=== PATIENT | male | born 1975 | race Caucasian/White ===

== ENCOUNTER 2016-07-23 03:58 | Inpatient (IN) | payer OTHER ==
[2016-07-23] VITALS (27 sets, daily range): BP systolic 134–209; BP diastolic 66–126; PULSE 65–89; RESP 17–80; TEMP 96.7–99.1; O2SAT 72–98; Ht 177.8 cm; Wt 150.1 kg
[~2016-07-23] VITALS: Ht 177.8 cm; Wt 150.1 kg
[~2016-07-23 03:58] MED LIST: AMOX-351 PO; METF500T4 PO
--- OUTSIDE RECORDS SUMMARY | 2016-07-23 04:03 | XMS REPORT | Continuity of Care Document ---
Author Author [facility] Organization [facility] Address Unknown Phone Unavailable Support Name Relationship Address Phone TIAGOHarrietMILLY Next Of Kin [address] [place] [address] Unavailable Insurance Providers Payer Name Policy Number Subscriber Name Relationship Benefit Admin Systems n [id number] Kvng Wan 16 Self Problems No Known Problems or Medical conditions. Family History History Response Recorded Date/Time HX of Orthopedic Surgeries N 11/22/12 1:33am Hx Abdominal Surgery N 11/22/12 1:33am HX Cerebrovascular Accident N 11/22/12 1:33am Hx Seizures N 11/22/12 1:33am Hx Angina N 11/22/12 1:33am Hx Congestive Heart Failure N 11/22/12 1:33am Hx Heart Attack N 11/22/12 1:33am Hx Hypertension Y DX WITH SBC 02/05/12 11/22/12 1:33am Hx Rheumatic Fever N 11/22/12 1:33am Hx Chronic Obstructive Pulmonary Disease (COPD) N 11/22/12 1:33am Hx Diabetes N 11/22/12 1:33am Hx Clotting Problems N 11/22/12 1:33am Hx Cancer N 11/22/12 1:33am Hx MRSA N 11/22/12 1:33am HX of Cardiac Surgeries N 11/22/12 1:33am HX of Reproductive Surgeries N 11/22/12 1:33am HX of Endocrine Surgeries N 11/22/12 1:33am HX of Throat Surgery N 11/22/12 1:33am HX of Neurological Surgeries N 11/22/12 1:33am HX of Genitourinary Surgeries Y LAP MARIANNA 01/29/12 11/22/12 1:33am Infectious abscesses 03/17/12 5:38pm Social History History Response Recorded Date/Time Smoking Status Current some day smoker 11/22/12 1:33am Chewing Tobacco Status N 11/22/12 1:33am Hx Substance Use N 11/22/12 1:33am Hx Alcohol Use Y 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 11/22/12 1:33am Has the pt used tobacco in the last 12 months N 02/05/12 5:03pm Allergies, Adverse Reactions, Alerts Allergen Type Severity Reaction Last Updated No Known Allergies 11/22/12 Medications Medication Dose Units Route Sig Qty Days [Dutoprol] 1 Tab PO Folic Acid 0.8 Mg PO DAILY Warfarin Sodium (Coumadin) 6 Mg PO DAILY Warfarin Sodium (Coumadin) 4 Mg PO DAILY Levofloxacin (Levaquin) 750 Mg PO DAILY 7 Ondansetron Hcl (Zofran) 4 Mg PO PRN Q 6 HR Warfarin Sodium 6 Mg PO TUES AND THURS Warfarin Sodium 4 Mg PO DAILY, NONE TUE,THUR Diphenhydramine Hcl (Benadryl) 50 Mg PO Q6H PRN Nafcillin Sodium (Nafcillin) 8 Gm IV 7ML/HR, 24HR/DAILY Tramadol Hcl 50 Mg PO EVERY 6 HRS NEEDE Oxycodone Hcl (Oxycontin) 5 Mg PO PRN PRN Miscellaneous Information (No Known Medications) Immunizations Name Given Type Hx Influenza Vaccination N H Hx Pneumococcal Vaccination N H Response Recorded Date/Time Status not known Unknown Results Test Date Result Interp. Ref. Range Activated Partial Thromboplast Time March 03, 2012 3:45pm 35.4 SEC N 24- 36 Alanine Aminotransferase (ALT/SGPT) March 20, 2012 4:48am 22 U/L N 21- 72 Albumin March 20, 2012 4:48am 3.1 G/DL L 3.5-5.0 Albumin/Globulin Ratio March 20, 2012 4:48am 0.7 RATIO L 1.1-2.2 Alkaline Phosphatase March 20, 2012 4:48am 112 U/L N 38-126 Amylase Level March 20, 2012 4:48am 54 U/L N 30-110 Anion Gap March 21, 2012 4:15am 9 MEQ/L N 5-15 Arterial Blood Base Excess February 05, 2012 1:15pm 1.9 MMOL/L N -2.0-2.0 Arterial Blood HCO3 February 05, 2012 1:15pm 27 MEQ/L H 22-26 Arterial Blood Oxygen Content February 05, 2012 1:15pm 2 - Arterial Blood Oxygen Saturation February 05, 2012 1:15pm 94.0 % L 95.0- 98.0 Arterial Blood Partial Pressure CO2 February 05, 2012 1:15pm 41 MMHG N 34 -45 Arterial Blood Total CO2 February 05, 2012 1:15pm 27.9 MEQ/L H 23-27 Arterial Blood pH February 05, 2012 1:15pm 7.420 N 7.350-7.450 Aspartate Amino Transf (AST/SGOT) March 20, 2012 4:48am 16 U/L L 17-59 BUN/Creatinine Ratio March 21, 2012 4:15am 6 RATIO N 6-26 Band Neutrophils # March 03, 2012 3:45pm 0.0 T/MM3 - Band Neutrophils % March 03, 2012 3:45pm 1.0 % N 0-6 Basophils # (Auto) March 21, 2012 4:15am 0.0 T/MM3 N 0-0.2 Basophils # (Manual) January 10, 2012 11:17pm 0.1 T/MM3 N 0-0.2 Basophils % (Manual) January 10, 2012 11:17pm 1.0 % N 0-2 Basophils (%) (Auto) March 21, 2012 4:15am 0.4 % N 0-2 Blood Smear Pathologist Review February 12, 2012 1:15pm Sent for review - Blood Urea Nitrogen March 21, 2012 4:15am 9.0 MG/DL N 9-20 C-Reactive Protein March 10, 2012 4:00pm 27.0 MG/L H 0-9 Calcium Level March 21, 2012 4:15am 9.0 MG/DL N 8.4-10.2 Calculated Osmolality March 21, 2012 4:15am 268 MOSM/KG N 261-280 Carbon Dioxide Level March 21, 2012 4:15am 27 MEQ/L N 22-30 Chloride Level March 21, 2012 4:15am 104 MEQ/L N 98-107 Conjugated Bilirubin March 17, 2012 5:50pm 0.00 MG/DL N 0.00-0.30 Creatinine March 21, 2012 4:15am 1.4 MG/DL N 0.8-1.5 Differential Total Cells Counted December 14, 2007 3:55pm 100 % - Eosinophils # (Auto) March 21, 2012 4:15am 0.1 T/MM3 N 0-0.5 Eosinophils # (Manual) March 10, 2012 4:00pm 0.2 T/MM3 N 0-0.5 Eosinophils % (Manual) March 10, 2012 4:00pm 5.0 % H 0-4 Eosinophils (%) (Auto) March 21, 2012 4:15am 1.7 % N 0-4 Erythrocyte Sedimentation Rate March 10, 2012 4:00pm > 100 MM/HR H 0-15 Globulin March 20, 2012 4:48am 4.2 G/DL H 2.4-3.6 Glucose Level March 21, 2012 4:15am 95 MG/DL N 75-110 Group A Streptococcus Screen January 10, 2012 11:20pm Negative - Hematocrit March 21, 2012 4:15am 27.9 % L 41-53 Hemoglobin March 21, 2012 4:15am 8.6 GM/DL L 13.5-17.5 Hepatitis C Antibody March 18, 2012 9:40am Negative - Immunoglobulin G March 18, 2012 9:40am 1676.08 MG/DL H 700-1600 Influenza Type A Antigen March 17, 2012 5:50pm Negative - Influenza Type B Antigen March 17, 2012 5:50pm Negative - Lipase March 20, 2012 4:48am 97 U/L N 23-300 Lymphocytes # (Auto) March 21, 2012 4:15am 1.5 T/MM3 N 1-4.8 Lymphocytes # (Manual) March 10, 2012 4:00pm 1.3 T/MM3 N 1-4.8 Lymphocytes % (Manual) March 10, 2012 4:00pm 34.0 % N 23-45 Lymphocytes (%) (Auto) March 21, 2012 4:15am 21.9 % L 23-45 Mean Corpuscular Hemoglobin March 21, 2012 4:15am 27.7 UUG N 26-34 Mean Corpuscular Hemoglobin Concent March 21, 2012 4:15am 30.8 GM/DL L 31-37 Mean Corpuscular Volume March 21, 2012 4:15am 90.0 UM3 N 80-100 Mean Platelet Volume March 21, 2012 4:15am 9.5 UM3 N 9.4-12.4 Monocytes # (Auto) March 21, 2012 4:15am 0.6 T/MM3 N 0-0.8 Monocytes # (Manual) March 10, 2012 4:00pm 0.2 T/MM3 N 0-0.8 Monocytes % (Manual) March 10, 2012 4:00pm 4.0 % N 0-9.0 Monocytes (%) (Auto) March 21, 2012 4:15am 8.3 % N 0-9.0 Neutrophils # (Auto) March 21, 2012 4:15am 4.7 T/MM3 N 1.8-7.7 Neutrophils # (Manual) March 10, 2012 4:00pm 2.2 T/MM3 N 1.8-7.7 Neutrophils % (Manual) March 10, 2012 4:00pm 57.0 % N 33-66 Neutrophils (%) (Auto) March 21, 2012 4:15am 67.6 % H 33-66 Platelet Count March 21, 2012 4:15am 271 T/MM3 N 130-400 Potassium Level March 21, 2012 4:15am 3.8 MEQ/L N 3.6-5 Prothromb Time International Ratio March 21, 2012 4:15am 1.71 H 0.86- 1.10 RDW Standard Deviation March 21, 2012 4:15am 50.7 FL H 36.9-50.2 Red Blood Count March 21, 2012 4:15am 3.10 M/MM3 L 4.50-5.90 Rickettsia Ab ([facility] Spot Fever) January 11, 2012 11:27am Ref lab rpt scanned - Rouleau March 10, 2012 4:00pm Present - Sodium Level March 21, 2012 4:15am 140 MEQ/L N 134-144 Stool Occult Blood March 19, 2012 11:30am Negative - Streptococcus pneumoniae Antigen March 17, 2012 8:09pm Ref lab rpt scanned - Total Bilirubin March 20, 2012 4:48am 0.90 MG/DL N 0.20-1.30 Total Creatine Kinase March 03, 2012 3:45pm 34 U/L L 55-170 Total Protein March 20, 2012 4:48am 7.3 G/DL N 6.3-8.2 Troponin I March 17, 2012 5:50pm 0.021 ng/ml N 0-0.12 Unconjugated Bilirubin March 17, 2012 5:50pm 0.30 MG/DL N 0.00-1.10 Urine Amorphous Urates February 05, 2012 3:00pm Many - Urine Bilirubin February 05, 2012 3:00pm Negative - Urine Blood February 05, 2012 3:00pm 1+ H - Urine Collection Type February 05, 2012 3:00pm Voided - Urine Color February 05, 2012 3:00pm Yellow - Urine Culture Indicated February 05, 2012 3:00pm Cult reflexed &setup - Urine Fine Granular Casts February 05, 2012 3:00pm 10-20 /LPF - Urine Glucose (UA) February 05, 2012 3:00pm Negative - Urine Ketones February 05, 2012 3:00pm Negative - Urine Leukocyte Esterase February 05, 2012 3:00pm Trace H - Urine Mucus February 05, 2012 3:00pm Present - Urine Myoglobin January 11, 2012 4:40pm Ref lab rpt scanned - Urine Nitrite February 05, 2012 3:00pm Negative - Urine Protein February 05, 2012 3:00pm Trace H - Urine RBC February 05, 2012 3:00pm 1-3 /HPF - Urine Specific [place] February 05, 2012 3:00pm 1.020 - Urine Transitional Epithelial Cells February 05, 2012 3:00pm 3-5 /HPF - Urine Turbidity February 05, 2012 3:00pm Slt cldy - Urine Urobilinogen February 05, 2012 3:00pm 12 EU/DL H - Urine WBC February 05, 2012 3:00pm 3-5 /HPF - Urine pH February 05, 2012 3:00pm 5.0 - Vancomycin Level Trough February 08, 2012 3:15am 9.70 UG/ML L 15-20 White Blood Count March 21, 2012 4:15am 7.0 T/MM3 N 4.5-11.0 West Nile Virus IgG/IgM Antibody January 11, 2012 11:27am Ref lab rpt scanned - Oxygen Delivery Method (LAB) February 05, 2012 1:15pm Nasal cannula,liters - Glucometer January 29, 2012 3:11pm 169 mg/dL H 75-110 HIV (1&2) Ab Bands (Western Blot) March 20, 2012 4:48am Ref lab rpt scanned - HIV (1&2) Antibody Rapid March 18, 2012 9:47am Negative - Lyme Disease Total Antibody January 11, 2012 11:27am Ref lab rpt scanned - Glomerular Filtration Rate Calc March 21, 2012 4:15am 57 - Immature Granulocyte # (Auto) March 21, 2012 4:15am 0.01 T/MM3 N 0.00- 0.03 Immature Granulocyte % (Auto) March 21, 2012 4:15am 0.1 % N 0.0-0.5 Arterial Blood pO2 at Patient Temp February 05, 2012 1:15pm 69 MMHG L 80- 100 Human Granulocytic Ehrlichiosis IgG January 11, 2012 11:27am Ref lab rpt scanned - Mycoplasma pneumoniae IgG & IgM Ab March 18, 2012 9:47am Ref lab rpt scanned - ZT-Wsc-B-Type Natriuretic Peptide February 12, 2012 1:15pm 935 PG/ML H 0- 175 Procedures Procedure Code Date LAPARO CHOLECYSTECTOMY/GRAPH 46213 01/29/12 [id number] ADDITION TO CODE FOR PRIMARY PROCEDURE) S2900 01/29/12 DX ULTRASOUND-HEART 88.72 02/09/12 VENOUS CATHETERIZATION NEC 38.93 02/10/12 PACKED CELL TRANSFUSION 99.04 03/18/12 Blood Culture 03/17/12 Catheter Tip Culture 03/18/12 Gram Stain 03/18/12 Urine Culture 03/17/12 Gram Stain 12/14/07 Encounters Encounter Location Date/Time Departed Emergency Room [facility] 11/22/12 1:26am Discharged Inpatient [facility] 03/18/12 6:10pm
--- OUTSIDE RECORDS SUMMARY | 2016-07-23 04:03 | XMS REPORT | Continuity of Care Document ---
Author Author [facility] Organization [facility] Address Unknown Phone Unavailable Care Team Providers [facility] Name Role Phone JOHNATHAN MILLER DO Primary Care Physician [phone] Insurance Providers Guarantor ElmerKvng Address [address] [phone] CP Email [email or web address] Payer Benefit [employer] Policy Number [id number] Subscriber's Name Kvng Wan Relationship 16 Self Group Number [id number] Chief Complaint and Reason for Visit Chief Complaint Cough,Fever,Flu,URI Reason for Visit Acute sinus infection Problems Past Problems Medical Problem Onset Date Acute sinus infection Unknown Medications Current Home Medications Medication Dose Units Route Directions Days Qty Instructions Start Date Amoxicillin/Potassium Clav (Augmentin 875-125 Tablet) 1 Each Tablet 1 Tab Oral Twice A Day 10 Days 14 Tablet TAKE WITH MEALS 05/20/16 Metformin Hcl Unknown Strength Tablet Unknown Dose Oral Give With Breakfast 2 Best taken with meals 05/20/16 Past Home Medications Medication Directions Ordered Status Diphenhydramine Hcl (Benadryl) 50 Mg Capsule, 50 Mg Oral Every 6 Hours as needed 03/17/12 Discontinued Levofloxacin (Levaquin) 750 Mg Tablet, 750 Mg Oral Daily 03/21/12 Discontinued Miscellaneous Information (No Known Medications) Misc, 01/11/12 Discontinued Nafcillin Sodium (Nafcillin) 1 G Vial, 8 Gm Intraven 7ML/Hr, 24HR/Daily 03/17 Discontinued Ondansetron Hcl (Zofran) 4 Mg Tablet, 4 Mg Oral Prn Q 6 Hr 03/17/12 Discontinued Oxycodone Hcl (Oxycontin) 10 Mg Tab.er.12h, 5 Mg Oral As Needed as needed 06/05 Discontinued Tramadol Hcl 50 Mg Tablet, 50 Mg Oral Every 6 Hrs As Neede 03/17/12 Discontinued Warfarin Sodium (Coumadin) 4 Mg Tablet, 4 Mg Oral Daily 03/22/12 Discontinued Warfarin Sodium (Coumadin) 6 Mg Tablet, 6 Mg Oral Daily 03/22/12 Discontinued Warfarin Sodium 4 Mg Tablet, 4 Mg Oral Daily, None Tue,Thur 03/17/12 Discontinued Warfarin Sodium 6 Mg Tablet, 6 Mg Oral Tues And 03/17/12 Discontinued Social History Social History Problem Response Recorded Date/Time Onset Date Status Chewing Tobacco Status No 11/22/2012 1:33am Not Applicable Not Applicable Hx Substance Use No 11/22/2012 1:33am Not Applicable Not Applicable Hx Alcohol Use 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 Plan of Care Discharge Date 05/20/16 1:30pm Disposition 01 DISCHARGED HOME, SELF-CARE Condition at Discharge Stable Instructions/Education Provided DI for Sinusitis Forms Provided [employer] Work/School Permit Prescriptions See Medication Section Referrals JOHNATHAN MILLER DO Address: [address] [place] [address] [phone] Functional Status No functional status results. Allergies, Adverse Reactions, Alerts No known allergies. Immunizations Query Response on File Recorded Date/Time Hx Influenza Vaccination No 11/22/12 1:33am Hx Pneumococcal Vaccination No 11/22/12 1:33am Hx Influenza Vaccination No 11/22/12 1:33am Vital Signs Acute Vital Signs Vital Response Date/Time Temperature (Fahrenheit) 97.6 deg F (96.8 - 99.1) 05/20/2016 1:07pm Temperature (Calculated Celsius) 36.06247 degrees C (36.0 - 37.3) 05/20/2016 1:07pm Pulse Rate (adult) 98 bpm (60 - 100) 05/20/2016 1:07pm O2 Sat by Pulse Oximetry 98 % (90 - 100) 05/20/2016 1:07pm Blood Pressure 144/90 mm Hg 05/20/2016 1:07pm Height (Feet) 5 feet 05/20/2016 1:07pm Height (Inches) 10.00 inches 05/20/2016 1:07pm Weight (Kilograms) 155.000 kg 05/20/2016 1:07pm Body Mass Index (BMI) 49.0 05/20/2016 1:07pm Results No known relevant diagnostic tests, laboratory data and/or discharge summary. Procedures No known history of procedures. Encounters Encounter Location Arrival/Admit Date Discharge/Depart Date Attending Provider Departed Emergency Room [facility] 05/20/16 12:59pm 05/20/16 1: 30pm [address] L[address] APRN Recent Diagnosis
--- OUTSIDE RECORDS SUMMARY | 2016-07-23 04:13 | XMS REPORT | Continuity of Care Document ---
Author Author [facility] Organization [facility] Address Unknown Phone Unavailable Support Name Relationship Address Phone TIAGOHarrietMILLY Next Of Kin [address] [address] Unavailable Insurance Providers Payer Name Policy Number Subscriber Name Relationship Benefit Admin Systems n [id number] Kvng Wan 16 Self Problems No Known [...] 4:15am 3.10 M/MM3 L 4.50-5.90 Rickettsia Ab ([facility] Spot Fever) January 11, 2012 11:27am Ref [...] 2012 3:00pm 1-3 /HPF - Urine Specific [place] February 05, 2012 3:00pm 1.020 - Urine [...] 2012 9:47am Ref lab rpt scanned - CP-Czj-L-Type Natriuretic Peptide February 12, 2012 1:15pm 935 PG/ML H 0- 175 Procedures Procedure Code Date LAPARO CHOLECYSTECTOMY/GRAPH 43904 01/29/12 [id number] ADDITION TO CODE FOR PRIMARY PROCEDURE) S2900 01/29/12 DX ULTRASOUND-HEART 88.72 02/09/12 VENOUS CATHETERIZATION NEC 38.93 02/10/12 PACKED CELL TRANSFUSION 99.04 03/18/12 Blood Culture 03/17/12 Catheter Tip Culture 03/18/12 Gram Stain 03/18/12 Urine Culture 03/17/12 Gram Stain 12/14/07 Encounters Encounter Location Date/Time Departed Emergency Room [facility] 11/22/12 1:26am Discharged Inpatient [facility] 03/18/12 6:10pm
--- NOTE | 2016-07-23 04:14 | ERPDOC ---
Departure Disposition Decision Date: Jul 23, 2016 Disposition Decision Time: 05:08 Disposition: 02 TO [facility] [place] Impression Impression: Primary Impression: Hypertensive emergency Additional Impressions: Elevated troponin Congestive heart failure Congestive heart failure type: unspecified congestive heart failure type Congestive heart failure chronicity: unspecified congestive heart failure chronicity Qualified Codes: I50.9 - Heart failure, unspecified Pulmonary edema Chronicity: acute Qualified Codes: J81.0 - Acute pulmonary edema Severity: Severe Condition: Improved Seen By: Physician only Referrals: JOHNATHAN MILLER DO (PCP/Family) Problems/Meds/Labs Reviewed?: Yes Medications reviewed and manag: Yes Follow up care ordered?: Yes Mental Status: Alert HPI - Dyspnea General Stated Complaint: SHORTNESS OF BREATH Time Seen by Provider: 04:00 Source: patient, family Exam Limitations: no limitations HPI - Dyspnea Initial Comments Patient presents tonight after getting off work at 2 AM, with complaints of worsening dyspnea. When the patient tries to go to sleep, he awakened suddenly with a severe feeling of not being able to breathe. This is been ongoing for at least one to 2 weeks, and the patient has not contacted his primary physician about this yet. Patient admits that he is supposed to be on blood pressure medication as well as diabetes medication, but due to financial constraints he has not taken the medication in quite some time. 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 Patient is also significantly overweight. Occurred At: home Onset/Timing: Gradual Severity: moderate, severe Activities at Onset: rest, sleep Associated Symptoms: cough, shortness of breath, DENIES: diaphoresis, fever/ chills, headaches, loss of appetite, malaise, nausea/vomiting, rash, seizure, syncope, weakness Aspirin Treatment Today: unknown Hx of Similar Symptoms: Yes Allergies: Coded Allergies: No Known Allergies (Verified , 05/20/16) Past History Past Medical History Metabolic: diabetes, hypertension, other Cardiac: other (endocarditis) Respiratory: pulmonary embolus (2011) GI: gallbladder disease Integumentary: other Infectious: other Surgical History General: gallbladder Family History Family PMH: FOUND: diabetes Vaccines Hx Influenza Vaccination: No Hx Pneumococcal Vaccination: No Social History Smoking Status: Never smoker Does patient use chewing tobac: No Second Hand Exposure: No Substance Use Type: does not use Alcohol Intake: occasionally Record Review Pertinent history updated: Yes Review of Systems Constitutional Constitutional: DENIES: appetite decrease, appetite increase, chills, dizziness , fever, weakness ENMT Ears: DENIES: pain Hearing: DENIES: hearing loss, tinnitus Balance: DENIES: vertigo Mouth/Throat: DENIES: change in swallowing, change in voice, hoarsness, painful swallowing, sore throat Cardiovascular Cardiac: DENIES: chest pain, dyspnea on exertion Rhythm/Rate: DENIES: irregular beat, palpitations, tachycardia Vascular: DENIES: pedal edema Pulmonary Respiratory: cough, dyspnea, DENIES: exposure to TB, hyperventilation, last PPD , pleuritic chest pain, pneumonia hx, recent risky activities, sputum, tachypnea GI Upper Abdomen: DENIES: dysphagia, heartburn/indigestion, nausea, pain, vomiting Lower Abdomen: DENIES: blood in stool, constipation, diarrhea, pain General: DENIES: burning, dysuria, frequency, pain, urgency Musculoskeletal General: DENIES: cramps, joint pain, joint swelling, pain, weakness Integumentary Skin: DENIES: rash, sores Neurological General: DENIES: headache, numbness, tingling, vertigo, weakness Psychiatric Psychiatric: DENIES: anxiety, depression, nervousness Physical Exam General General Nourishment: well nourished, well developed, appears stated age, no acute distress, obese General Body Habitus: well groomed Vitals and Pain First Documented Vital Signs Date Time Temp Pulse Resp B/P Pulse Ox O2 Delivery O2 Flow Rate FiO2 07/23/16 03:58 98.0 110 20 224/147 95 Room Air Weight: Kilograms: Height (feet): 5 Height (inches): 10.00 Triage Pain Scale: RN VS reviewed by Provider: Yes Comments Patient is significantly hypertensive, otherwise vital signs are normal, O2 saturation is well within normal limits Normal Exams: Head: Normocephalic w/o trauma Eyes: Pupils are PERRLA w/ EOMI, No scleral icterus, irritation, or foreign bodies noted ENMT: No facial trauma, nasal exudates, pharyngeal erythema, or exudates are noted Neck: Full range of motion, without adenopathy, JVD, bruits or thyromegaly Chest/Resp: Clear all leon, with good airflow, and symmetry bilaterally CV: Regular rate and rhythm, without murmur or gallop, Pulses 2+ all extremities, capillary refill, <2 seconds all ext., no pedal edema noted Abdomen: Bowel sounds positive, soft, non-tender, non-distended, no hepatosplenomegaly, masses or bruits noted Lymphatic: No lymphadenopathy, or lymphedema noted Musculoskeletal: No tenderness, or deformity noted, good range of motion, all extremities Integumentary: No rashes, hives, or bruising noted, hair and nails, without abnormality Neurologic: Patient is alert, and oriented, cranial nerves, motor/sensory/ cerebellar, exams w/o gross deficits, to observation Psychiatric: Patient exhibits, appropriate attention, emotion and affect Progress Results/Orders Orders Procedure Category Date Status Time Iv Lock (Ed Only) EDM 07/23/16 Transmitted 04:07 EKG EKG 07/23/16 Taken Cbc W/Auto LAB 07/23/16 Complete Diff-Reflex Manual Cmp - Comprehensive LAB 07/23/16 Complete Metabolic Chest, Pa & Lateral RAD 07/23/16 Taken Troponin I W LAB 07/23/16 Complete Hemolysis Index Labetalol (Trandate) PHA 07/23/16 Complete 04:15 Nitroglycerin PHA 07/23/16 Complete Ointment (Nitro-Bid) 04:15 Probnp LAB 07/23/16 Complete UNK D-Dimer LAB 07/23/16 Complete Lisinopril (Prinivil) PHA 07/23/16 Complete 05:00 Furosemide (Lasix) PHA 07/23/16 Complete 05:00 Place In Facility: ED ADM 07/23/16 Transmitted 05:[address] For ED ADM 07/23/16 Transmitted Further Orders 05:09 Notify Adm Physician CR 07/23/16 Transmitted In Am 05:09 Measure Vital Signs [facility] 07/23/16 Transmitted 05:09 Telemetry CR 07/23/16 Transmitted 05:09 Iv Lock (Nursing) CR 07/23/16 Transmitted 05:09 Nitroglycerin PHA 07/23/16 Transmitted (Nitrostat) 05:15 Morphine Sulfate PHA 07/23/16 Transmitted (Morphine) 05:15 Troponin I W LAB 07/23/16 Transmitted Hemolysis Index 10:00 Troponin I W LAB 07/23/16 Transmitted Hemolysis Index 16:00 Lab Results Laboratory Tests Test 07/23/16 04:14 White Blood Count 8.3T/MM3 Red Blood Count 5.03M/MM3 Hemoglobin 15.0GM/DL Hematocrit 45.6% Mean Corpuscular Volume 90.7UM3 Mean Corpuscular Hemoglobin 29.8UUG Mean Corpuscular Hemoglobin Concent 32.9GM/DL RDW Standard Deviation 48.7FL Platelet Count 212T/MM3 Mean Platelet Volume 9.8UM3 Immature Granulocyte % (Auto) 0.2% Neutrophils (%) (Auto) 74.3% Lymphocytes (%) (Auto) 18.5% Monocytes (%) (Auto) 5.2% Eosinophils (%) (Auto) 1.2% Basophils (%) (Auto) 0.6% Absolute Immature Granulocyte (auto 0.02T/MM3 Absolute Neutrophils (auto) 6.1T/MM3 Absolute Lymphocytes (auto) 1.5T/MM3 Absolute Monocytes (auto) 0.4T/MM3 Absolute Eosinophils (auto) 0.1T/MM3 Absolute Basophils (auto) 0.1T/MM3 D-Dimer 222NG/ML Turbidity < 20 Sodium Level 143MEQ/L Potassium Level 4.3MEQ/L Chloride Level 101MEQ/L Carbon Dioxide Level 29MEQ/L Anion Gap 13MEQ/L Blood Urea Nitrogen 26.0MG/DL Creatinine 1.5MG/DL Glomerular Filtration Rate Calc 51 BUN/Creatinine Ratio 17RATIO Glucose Level 135MG/DL Calculated Osmolality 282MOSM/KG Calcium Level 9.8MG/DL Total Bilirubin 1.60MG/DL Icterus Index < 2 Aspartate Amino Transf (AST/SGOT) 53U/L Alanine Aminotransferase (ALT/SGPT) 42U/L Alkaline Phosphatase 123U/L Troponin I 0.148ng/ml PE-Pai-O-Type Natriuretic Peptide 3380PG/ML Total Protein 8.1G/DL Albumin 4.4G/DL Globulin 3.7G/DL Albumin/Globulin Ratio 1.2RATIO Chemistry Specimen Hemolysis < 15 Medications Current ED Medications Labetalol HCl (Trandate) 20 mg O ONCE IV Last administered on 07/23/16 04:24 ; Start 07/23/16 at 04:15; Stop 07/23/16 at 04:17; Status DC Nitroglycerin (Nitro-Bid) 1 inch O ONCE TOP Last administered on 07/23/16 04: 24; Start 07/23/16 at 04:15; Stop 07/23/16 at 04:17; Status DC Lisinopril (Prinivil) 40 mg O ONCE PO Last administered on 07/23/16 04:58; Start 07/23/16 at 05:00; Stop 07/23/16 at 05:02; Status DC Furosemide (Lasix) 40 mg O ONCE IV Last administered on 07/23/16 04:51; Start 07/23/16 at 05:00; Stop 07/23/16 at 05:02; Status DC Progress Progress Patient given 1 inch nitro paste to the chest, and labetalol 20 mg IV - EKG - normal sinus rhythm/sinus tachycardia with incomplete right bundle-branch block, moderate voltage criteria for left ventricular hypertrophy, mild axis deviation to the left. No signs of ischemia, ectopy, or infarction. CBC - normal CMP - mild elevation in glucose at 282, mild bilirubin elevation at 1.6 BNP - typically elevated at 3380 D-dimer normal Chest x-ray - significant cardiomegaly with mild diffuse infiltrative pattern consistent with congestive heart failure/pulmonary edema After initial medications blood pressure significant improved, symptoms have essentially resolved. Patient given milligram Lasix IV here Troponin - elevated 0.[address] Bustamante, we will admit the patient from observation in the CCU for hypertensive emergency with elevated troponin JOHNATHAN STREET MD Jul 23, 2016 04:14
[2016-07-23] MEDS ORDERED: LABETALOL 100mg/20ml INJECTION IV ONE (04:15)
[2016-07-23] MEDS ORDERED: NITROGLYCERIN 2% OINTMENT 1 G PACKET TOP ONE ×2 (04:15→05:15)
[2016-07-23 04:22] LABS: BASOPHILS # (AUTO) 0.1 T/MM3 (0-0.2); BASOPHILS % (AUTO) 0.6 % (0-2); EOSINOPHILS # (AUTO) 0.1 T/MM3 (0-0.5); EOSINOPHILS % (AUTO) 1.2 % (0-4); HCT - HEMATOCRIT 45.6 % (41-53); IMMATURE GRANULOCYTE # (AUTO) 0.02 T/MM3 (0.00-0.03); IMMATURE GRANULOCYTE % (AUTO) 0.2 % (0.0-0.5); LYMPHOCYTES # (AUTO) 1.5 T/MM3 (1-4.8); LYMPHOCYTES % (AUTO) 18.5 % (23-45); MEAN CORPUSCULAR HGB 29.8 UUG (26-34); MEAN CORPUSCULAR HGB CONC(MCHC 32.9 GM/DL (31-37); MEAN CORPUSCULAR VOLUME 90.7 UM3 (80-100); MEAN PLATELET VOLUME 9.8 UM3 (9.4-12.4); MONOCYTES # (AUTO) 0.4 T/MM3 (0-0.8); MONOCYTES % (AUTO) 5.2 % (0-9.0); NEUTROPHILS #(AUTO)-ABSOLUTE 6.1 T/MM3 (1.8-7.7); NEUTROPHILS % (AUTO) 74.3 % (33-66); RED BLOOD COUNT 5.03 M/MM3 (4.50-5.90); WBC - WHITE BLOOD COUNT 8.3 T/MM3 (4.5-11.0)
[2016-07-23 04:29] LABS: ALBUMIN 4.4 G/DL (3.5-5.0); ALBUMIN/GLOBULIN RATIO 1.2 RATIO (1.1-2.2); ALKALINE PHOSPHATASE 123 U/L (38-126); ALT (SGPT) 42 U/L (21-72); ANION GAP 13 MEQ/L (5-15); AST (SGOT) 53 U/L (17-59); BUN/CREATININE RATIO 17 RATIO (6-26); CALCIUM 9.8 MG/DL (8.4-10.2); CHLORIDE 101 MEQ/L (98-107); CO2 - CARBON DIOXIDE 29 MEQ/L (22-30); CREATININE 1.5 MG/DL (0.8-1.5); GLOMERULAR FILTRATION RATE 51; GLUCOSE 135 MG/DL (75-110); POTASSIUM 4.3 MEQ/L (3.6-5); SODIUM 143 MEQ/L (134-144); TOTAL PROTEIN 8.1 G/DL (6.3-8.2)
[2016-07-23 04:39] LABS: PROBNP 3380 PG/ML (0-175)
--- NOTE | 2016-07-23 04:58 | NUR ---
PO MEDS PT GIVEN LISINPRIL CHARTED W/ PT TOLERANCE.
[2016-07-23] MEDS ORDERED: FUROSEMIDE 40 MG/4 ML INJECTION IV ONE (05:00)
[2016-07-23] MEDS ORDERED: LISINOPRIL 40 MG TABLET PO ONE (05:00)
[2016-07-23] MEDS ORDERED: NITROGLYCERIN 0.4 MG SUBLINGUAL TABLET SL PRN (05:15)
[2016-07-23] MEDS ORDERED: MORPHINE SULFATE 2 MG SYRINGE IV PRN (05:15)
--- OUTSIDE RECORDS SUMMARY | 2016-07-23 05:18 | XMS REPORT | Continuity of Care Document ---
Author Author [facility] Organization [facility] Address Unknown Phone Unavailable Support Name Relationship Address Phone TIAGOHarrietMILLY Next Of Kin [address] [address] Unavailable Insurance Providers Payer Name Policy Number Subscriber Name Relationship Benefit [employer] Systems n [id number] Kvng Wan 16 Self Problems No Known [...] 4:15am 3.10 M/MM3 L 4.50-5.90 Rickettsia Ab ([facility] Spot Fever) January 11, 2012 11:27am Ref [...] 2012 3:00pm 1-3 /HPF - Urine Specific [place] February 05, 2012 3:00pm 1.020 - Urine [...] 2012 9:47am Ref lab rpt scanned - JM-Azx-T-Type Natriuretic Peptide February 12, 2012 1:15pm 935 PG/ML H 0- 175 Procedures Procedure Code Date LAPARO CHOLECYSTECTOMY/GRAPH 07500 01/29/12 [id number] ADDITION TO CODE FOR PRIMARY PROCEDURE) S2900 01/29/12 DX ULTRASOUND-HEART 88.72 02/09/12 VENOUS CATHETERIZATION NEC 38.93 02/10/12 PACKED CELL TRANSFUSION 99.04 03/18/12 Blood Culture 03/17/12 Catheter Tip Culture 03/18/12 Gram Stain 03/18/12 Urine Culture 03/17/12 Gram Stain 12/14/07 Encounters Encounter Location Date/Time Departed Emergency Room [facility] 11/22/12 1:26am Discharged Inpatient [facility] 03/18/12 6:10pm
--- NOTE | 2016-07-23 05:20 | NUR ---
REPORT CALLED REPORT TO SHELDON LOMAS
--- NOTE | 2016-07-23 05:30 | NUR ---
TRANSFER TO CCU#5 PT IS TAKEN TO CCU#5 FOR ADMISSION. ACCOMPANIES
--- NOTE | 2016-07-23 05:30 | NUR ---
Admit Patient arrives from ED by wheelchair and transfers to bed without assistance. in room with patient.
--- NOTE | 2016-07-23 08:16 | DI ---
Indication: ITS.REASON: dyspnea Procedure: CHEST, PA LATERAL: Encounter: Initial Comparison: 03/17/2012, 02/12/2012 Technique: PA and lateral radiographs of the chest were obtained. Findings: Lungs and airways: Normal lung volumes. No focal airspace consolidation. Mildly prominent interstitial markings. Pleura: No pleural effusion or pneumothorax. Heart and mediastinum: Cardiomegaly. The great vessels are within normal limits. Osseous structures and soft tissues: No acute osseous abnormality is seen. Impression: Cardiomegaly with mildly prominent interstitial markings which could reflect early congestive change/edema. .
[2016-07-23] MEDS: ENOXAPARIN 40 MG/0.4 ML INJECTION SQ SCH (08:25)
[2016-07-23 08:43] LABS: BLOOD, URINE TRACE-INTACT (NEGATIVE); COLOR,URINE YELLOW (YELLOW); LEUKOCYTE ESTERASE ,URINE NEGATIVE (NEGATIVE); NITRITE,URINE NEGATIVE (NEGATIVE); UROBILINOGEN,URINE 0.2 EU/DL (NORMAL)
[2016-07-23] MEDS ORDERED: LABETALOL 100 MG TABLET PO SCH (09:00)
[2016-07-23] MEDS: ACETAMINOPHEN 325 MG TABLET PO PRN (09:06)
--- NOTE | 2016-07-23 09:30 | NUR ---
STATUS Patient awake and alert. Denies discomfort. Does feel tired. AM cares provided. Patient has lower ext edema w/ discoloration. Dr. Bustamante here to see patient and new orders noted. Echo done. Tries to eat breakfast. Does have a coughing fit and c/o nausea. Will monitor.
[2016-07-23] MEDS: BUMETANIDE 2.5mg INJECTION IV SCH ×3 (10:14→21:44)
[2016-07-23] MEDS: ASPIRIN *EC* 81mg TABLET PO SCH (10:16)
--- NOTE | 2016-07-23 10:30 | NUR ---
STATUS Had coughing fit and nausea spell w/ small amount emesis. Reports CARTER is gone. Diuresing well. Spouse at bedside.
--- NOTE | 2016-07-23 11:45 | HPPDOC ---
TRENT SPENCER JUNAID 07/23/16 1118: HPI - Adult Date DATE: 07/23/16 TIME: 11:15 General Date of Admission Date of Admission: Jul 23, 2016 at 05:09 Chief Complaint: dyspnea History of Present Illness Kvng is a 40 year old who presented this morning after getting off work at 2 AM , with complaints of worsening dyspnea. When he tried to go to sleep, he awakened suddenly with a severe feeling of not being able to breathe. This is been ongoing for at least one to 2 weeks, and he has not contacted his primary physician about this yet. He admits that he is supposed to be on blood pressure medication as well as diabetes medication, but due to financial constraints he has not taken the medication in quite some time. 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 He is also significantly overweight. He is seen today in his room in CCU. He is alert and pleasant. States that he has not been able to afford his medications for about 6 months or more. He denies chest pain, breathing difficulty or dizziness. Past Medical History Past Medical History Metabolic: diabetes, hypertension, other Cardiac: other (endocarditis) Respiratory: pulmonary embolus (2011) GI: gallbladder disease Integumentary: other Infectious: other Surgical History General: gallbladder Current Medications Home Meds Active Scripts Metformin HCl (Glucophage) 500 Mg Tablet, 500 MG PO BIDWM for 30 Days, #60 TAB 11 Refills Prov:TRENT SPENCER JUNAID 07/25/16 Bumetanide (Bumetanide) 1 Mg Tablet, 2 MG PO BID. for 30 Days, #120 TAB 11 Refills Prov:TRENT SPENCER JUNAID 07/25/16 Aspirin *EC* (Aspirin EC) 81 Mg Tablet.dr, 81 MG PO DAILY for 30 Days, #30 TAB 11 Refills Prov:TRENT SPENCER JUNAID 07/25/16 Spironolactone (Aldactone) 25 Mg Tablet, 25 MG PO DAILY for 30 Days, #30 TAB 11 Refills Prov:TRENT SPENCER JUNAID 07/25/16 Sacubitril/Valsartan (Entresto 24 mg-26 mg Tablet) 1 Each Tablet, 1 TAB PO BID for 30 Days, #60 TAB 11 Refills Prov:TRENT SPENCER JUNAID 07/25/16 Nifedipine (Nifedipine ER) 30 Mg Tab.er.24, 30 MG PO DAILY for 30 Days, #30 TAB 11 Refills Prov:TRENT SPENCER MILLER ROD MILL 07/25/16 Carvedilol (Coreg) 25 Mg Tablet, 25 MG PO BIDWM for 30 Days, #60 TAB 11 Refills Prov:TRENT SPENCER MILLER ROD MILL 07/25/16 Allergies: Coded Allergies: No Known Allergies (Verified , 05/20/16) Family History FOUND: diabetes Vaccines unknown unknown year Social History Smoking Status: Never smoker Does patient use chewing tobac: No Second Hand Exposure: No Substance Use Type: does not use Alcohol Intake: occasionally Advance Directives: No DPOA for Healthcare Only Review of Systems Constitutional: DENIES: chills, dizziness, fever, syncope, weakness Eyes Vision: DENIES: double vision ENMT Hearing: DENIES: tinnitus Balance: DENIES: vertigo Sinuses: NOT FOUND: rhinorrhea Mouth/Throat: DENIES: sore throat Cardiovascular dyspnea on exertion, paroxysmal nocturnal dysp, DENIES: chest pain Rhythm/Rate: DENIES: irregular beat, palpitations Vascular: pedal edema, varicosities Pulmonary Respiratory: DENIES: cough, sputum GI Upper Abdomen: DENIES: nausea, vomiting Lower Abdomen: DENIES: blood in stool, diarrhea General: DENIES: dysuria Integumentary Skin: sores Neurological General: DENIES: headache, numbness, syncope, weakness All Other Systems All Other Systems: Reviewed (remainder of 10-point ROS Neg.) Physical Exam General General Nourishment: well nourished, well developed, obese, apparent age Vital Signs Vital Signs Date Time Temp Pulse Resp B/P Pulse Ox O2 Delivery O2 Flow Rate FiO2 07/23/16 08:00 97.9 85 20 204/125 95 Room Air Height (Feet): 5 Height (Inches): 10.00 Telemetry Rhythm: Sinus Rhythm ENMT Brief: FOUND: mucosa moist Neck Brief: NOT FOUND: JVD, carotid bruits Respiratory Brief: FOUND: clear all leon, equal bilaterally, NOT FOUND: rales , wheezes Cardiovascular (brief) Cardiac Brief: FOUND: pedal edema, regular rate, regular rhythm, NOT FOUND: click, gallop, murmur Abdomen (brief) Abdominal Brief: FOUND: BS normo active x4, soft Integumentary (brief) Integumentary Brief: FOUND: dry, lesions (LE venous stasis), pink, warm Neurologic RN Documented GCS Eye Opening: Verbal: Motor: Total: Psychiatric (brief) FOUND: alert, attentive, oriented Laboratory Laboratory Tests Test 07/23/16 04:14 07/23/16 05:56 07/23/16 08:34 07/23/16 09:18 White Blood Count 8.3T/MM3 Red Blood Count 5.03M/MM3 Hemoglobin 15.0GM/DL Hematocrit 45.6% Mean Corpuscular Volume 90.7UM3 Mean Corpuscular Hemoglobin 29.8UUG Mean Corpuscular Hemoglobin Concent 32.9GM/DL RDW Standard Deviation 48.7FL Platelet Count 212T/MM3 Mean Platelet Volume 9.8UM3 Immature Granulocyte % (Auto) 0.2% Neutrophils (%) (Auto) 74.3% Lymphocytes (%) (Auto) 18.5% Monocytes (%) (Auto) 5.2% Eosinophils (%) (Auto) 1.2% Basophils (%) (Auto) 0.6% Absolute Immature Granulocyte (auto 0.02T/MM3 Absolute Neutrophils (auto) 6.1T/MM3 Absolute Lymphocytes (auto) 1.5T/MM3 Absolute Monocytes (auto) 0.4T/MM3 Absolute Eosinophils (auto) 0.1T/MM3 Absolute Basophils (auto) 0.1T/MM3 D-Dimer 222NG/ML Turbidity < 20 Sodium Level 143MEQ/L Potassium Level 4.3MEQ/L Chloride Level 101MEQ/L Carbon Dioxide Level 29MEQ/L Anion Gap 13MEQ/L Blood Urea Nitrogen 26.0MG/DL Creatinine 1.5MG/DL Glomerular Filtration Rate Calc 51 BUN/Creatinine Ratio 17RATIO Glucose Level 135MG/DL Calculated Osmolality 282MOSM/KG Calcium Level 9.8MG/DL Total Bilirubin 1.60MG/DL Icterus Index < 2 Aspartate Amino Transf (AST/SGOT) 53U/L Alanine Aminotransferase (ALT/SGPT) 42U/L Alkaline Phosphatase 123U/L Troponin I 0.148ng/ml 0.128ng/ml LQ-Fxr-X-Type Natriuretic Peptide 3380PG/ML Total Protein 8.1G/DL Albumin 4.4G/DL Globulin 3.7G/DL Albumin/Globulin Ratio 1.2RATIO Chemistry Specimen Hemolysis < 15 < 15 Glucometer 123mg/dL Urine Collection Type Cleancatch-midstream Urine Color Yellow Urine Turbidity Clear Urine pH 6.5 Urine Specific [place] 1.015 Urine Protein Trace Urine Glucose (UA) Negative Urine Ketones Negative Urine Blood Trace-intact Urine Nitrite Negative Urine Bilirubin Negative Urine Urobilinogen 0.2EU/DL Urine Leukocyte Esterase Negative Urinalysis Comment Microscopic not ind. Thyroid Stimulating Hormone (TSH) 3.48MIU/L Laboratory Tests Test 07/23/16 04:14 07/23/16 05:56 07/23/16 08:34 07/23/16 09:18 White Blood Count 8.3T/MM3 Red Blood Count 5.03M/MM3 Hemoglobin 15.0GM/DL Hematocrit 45.6% Mean Corpuscular Volume 90.7UM3 Mean Corpuscular Hemoglobin 29.8UUG Mean Corpuscular Hemoglobin Concent 32.9GM/DL RDW Standard Deviation 48.7FL Platelet Count 212T/MM3 Mean Platelet Volume 9.8UM3 Immature Granulocyte % (Auto) 0.2% Neutrophils (%) (Auto) 74.3% Lymphocytes (%) (Auto) 18.5% Monocytes (%) (Auto) 5.2% Eosinophils (%) (Auto) 1.2% Basophils (%) (Auto) 0.6% Absolute Immature Granulocyte (auto 0.02T/MM3 Absolute Neutrophils (auto) 6.1T/MM3 Absolute Lymphocytes (auto) 1.5T/MM3 Absolute Monocytes (auto) 0.4T/MM3 Absolute Eosinophils (auto) 0.1T/MM3 Absolute Basophils (auto) 0.1T/MM3 D-Dimer 222NG/ML Turbidity < 20 Sodium Level 143MEQ/L Potassium Level 4.3MEQ/L Chloride Level 101MEQ/L Carbon Dioxide Level 29MEQ/L Anion Gap 13MEQ/L Blood Urea Nitrogen 26.0MG/DL Creatinine 1.5MG/DL Glomerular Filtration Rate Calc 51 BUN/Creatinine Ratio 17RATIO Glucose Level 135MG/DL Calculated Osmolality 282MOSM/KG Calcium Level 9.8MG/DL Total Bilirubin 1.60MG/DL Icterus Index < 2 Aspartate Amino Transf (AST/SGOT) 53U/L Alanine Aminotransferase (ALT/SGPT) 42U/L Alkaline Phosphatase 123U/L Troponin I 0.148ng/ml 0.128ng/ml QI-Aba-C-Type Natriuretic Peptide 3380PG/ML Total Protein 8.1G/DL Albumin 4.4G/DL Globulin 3.7G/DL Albumin/Globulin Ratio 1.2RATIO Chemistry Specimen Hemolysis < 15 < 15 Glucometer 123mg/dL Urine Collection Type Cleancatch-midstream Urine Color Yellow Urine Turbidity Clear Urine pH 6.5 Urine Specific [place] 1.015 Urine Protein Trace Urine Glucose (UA) Negative Urine Ketones Negative Urine Blood Trace-intact Urine Nitrite Negative Urine Bilirubin Negative Urine Urobilinogen 0.2EU/DL Urine Leukocyte Esterase Negative Urinalysis Comment Microscopic not ind. Thyroid Stimulating Hormone (TSH) 3.48MIU/L EKG SR, LAD, incomplete RBBB Radiology DATE OF EXAM: 07/23/16 ORDERING DOCTOR: JOHNATHAN STREET MD TYPE OF EXAM: CHEST, PA & LATERAL REASON FOR EXAM: dyspnea Indication: ITS.REASON: dyspnea Procedure: CHEST, PA LATERAL: Encounter: Initial Comparison: 03/17/2012, 02/12/2012 Technique: PA and lateral radiographs of the chest were obtained. Findings: Lungs and airways: Normal lung volumes. No focal airspace consolidation. Mildly prominent interstitial markings. Pleura: No pleural effusion or pneumothorax. Heart and mediastinum: Cardiomegaly. The great vessels are within normal limits. Osseous structures and soft tissues: No acute osseous abnormality is seen. Impression: Cardiomegaly with mildly prominent interstitial markings which could reflect early congestive change/edema. Assessment & Plan Problems: (1) Hypertensive emergency Status: Acute Assessment & Plan: Hydralazine 10mg IV X1 and prn SBP >180. Labetalol 200mg BID changed to Coreg 25mg BID due to EF of 25% on echo (2) Congestive heart failure Status: Acute Qualifiers: Congestive heart failure type: systolic Congestive heart failure chronicity : unspecified congestive heart failure chronicity Qualified Codes: I50.20 - Unspecified systolic (congestive) heart failure Assessment & Plan: Bumex 2mg IV Q6H for diuresis. Entresto 24/26mg BID (3) Pulmonary edema Status: Acute Qualifiers: Chronicity: acute Qualified Codes: J81.0 - Acute pulmonary edema (4) Elevated troponin Status: Acute Assessment & Plan: Likely type II IA: heart cath at 1300 tomorrow Plan/Intensity of Service HTN: Hydralazine 10mg IV X1 and prn SBP >180. Labetalol 200mg BID changed to Coreg 25mg BID due to EF of 25% on echo. CHF: Bumex 2mg IV Q6H for diuresis. Entresto 24/26mg BID elevated troponin: Likely type II IA, heart cath at 1300 tomorrow DVT Prophylaxis: Lovenox Code Status Full Code Hospital Course Summary Disclaimer The hospital course summary below is not to be considered part of the above Progress Note. GERSON PAULINO MD 07/31/16 1012: Past Medical History Current Medications Home Meds Active Scripts Metformin HCl (Glucophage) 500 Mg Tablet, 500 MG PO BIDWM for 30 Days, #60 TAB 11 Refills Prov:TRENT SPENCER APRN 07/25/16 Bumetanide (Bumetanide) 1 Mg Tablet, 2 MG PO BID. for 30 Days, #120 TAB 11 Refills Prov:TRENT SPENCER APRN 07/25/16 Aspirin *EC* (Aspirin EC) 81 Mg Tablet.dr, 81 MG PO DAILY for 30 Days, #30 TAB 11 Refills Prov:TRENT SPENCER APRN 07/25/16 Spironolactone (Aldactone) 25 Mg Tablet, 25 MG PO DAILY for 30 Days, #30 TAB 11 Refills Prov:TRENT SPENCER APRN 07/25/16 Sacubitril/Valsartan (Entresto 24 mg-26 mg Tablet) 1 Each Tablet, 1 TAB PO BID for 30 Days, #60 TAB 11 Refills Prov:TRENT SPENCER APRN 07/25/16 Nifedipine (Nifedipine ER) 30 Mg Tab.er.24, 30 MG PO DAILY for 30 Days, #30 TAB 11 Refills Prov:TRENT SPENCER APRN 07/25/16 Carvedilol (Coreg) 25 Mg Tablet, 25 MG PO BIDWM for 30 Days, #60 TAB 11 Refills Prov:TRENT SPENCER APRN 07/25/16 Allergies: Coded Allergies: No Known Allergies (Verified , 05/20/16) Assessment & Plan Plan/Intensity of Service After examining the patient I agree with the above assessment. I am involved in the formulation of the patient's plan of care. TRENT SPENCER APRN Jul 23, 2016 11:18 GERSON PAULINO MD Jul 31, 2016 10:12
--- NOTE | 2016-07-23 12:30 | NUR ---
STATUS Lunch provided. Patient chose to sit in bed for lunch. With large abd, patient choked on food. Assisted patient to side of bed and encouraged to be up in chair for meals.
--- NOTE | 2016-07-23 15:09 | ECHOF ---
ECHOCARDIOGRAM DATE OF PROCEDURE July 23, 2016 This is a two-dimensional echo with spectral Doppler, color-flow and M-mode. It was obtained in a patient with hypertensive urgency and cardiomegaly on x-ray. Left atrial dimension is normal. Left ventricular end-diastolic dimension is normal. Left ventricular wall thickness is increased. LV systolic function is reduced with severe global hypokinesia with ejection fraction of about 25%. Right atrium is dilated. Right ventricle is dilated. Aortic root dimension is normal. There is evidence of pressure overload with flattening of the interventricular septum. Mitral valve is morphologically normal with trace of mitral regurgitation. Aortic valve appears to be normal. Tricuspid valve shows [id number]-tl-[id number] tricuspid regurgitation with kdoj-[id number] pulmonary hypertension with estimated pulmonary artery systolic pressure of 42. Pulmonary valve shows no pulmonary insufficiency. There is no pericardial effusion. Inferior vena cava is abnormal and dilated suggestive of elevated central venous pressure. IMPRESSION 1. Severe global hypokinesia with ejection fraction of about 25%. 2. Left ventricular hypertrophy. 3. Trace of mitral regurgitation. 4. Right atrial dilation. 5. Right ventricular dilation. 6. Evidence of pressure overload with flattening of the interventricular septum. 7. Zkdkhtvu-yn-exogmy tricuspid regurgitation with estimated pulmonary artery systolic pressure of 42. 8. Abnormal inferior vena cava suggestive of elevated central venous pressure. MTDD
--- NOTE | 2016-07-23 15:30 | NUR ---
STATUS Sleeps between cares. Cardiology here to visit w/ patient.
[2016-07-23] MEDS ORDERED: POTASSIUM CHLORIDE 20 MEQ TABLET PO ONE (17:00)
[2016-07-23] MEDS: CARVEDILOL 25 MG TABLET PO SCH (17:54)
--- NOTE | 2016-07-23 18:14 | CONSPD ---
Consultation Info Date DATE: 07/23/16 TIME: 17:58 Date of Consultation: Jul 23, 2016 Attending Physician: Dianna Reason for Consultation: diabetes HPI - Adult Date DATE: 07/23/16 TIME: 17:58 General Chief Complaint: dyspnea History of Present Illness Kvng Payne is an obese 40-year-old white male who is admitted for hypertensive urgency with acute dyspnea. He has a long history of diabetes, morbid obesity, hypertension, and he has been noncompliant with his medication for the past 6 months ostensibly due to financial reasons. He also has a history of bacterial endocarditis, his strep septicemia from lower extremity cellulitis. I am seeing him at your request due to uncontrolled diabetes. I have interviewed and examined him as well as reviewed the chart radiographs available labs. Past Medical History Past Medical History Patient's Medical History: (1) Hypertension (2) Type 2 diabetes mellitus (3) Bacterial endocarditis (4) Streptococcal cellulitis (5) Lower extremity edema (6) Noncompliance with medications Surgical History Patient's Surgical History: Robotic laparoscopic cholecyst[place] [address] 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 05/20/16 Allergies: Coded Allergies: No Known Allergies (Verified , 05/20/16) Family History Family History: Morbid obesity, hypertension, diabetes, CVA Social History Smoking Status: Never smoker Does patient use chewing tobac: No Second Hand Exposure: No Substance Use Type: does not use Alcohol Intake: occasionally Marital Status: Sexuality: female partner Household Members: spouse Service: No Advance Directives: No DPOA for Healthcare Only Review of Systems Constitutional: REPORTS: weakness, weight gain Cardiovascular dyspnea on exertion, paroxysmal nocturnal dysp, DENIES: chest pain, murmur Rhythm/Rate: DENIES: irregular beat, palpitations Vascular: pedal edema Pulmonary Respiratory: dyspnea, DENIES: cough, pleuritic chest pain, sputum GI Upper Abdomen: DENIES: dysphagia, food intolerances, heartburn/indigestion, nausea Lower Abdomen: DENIES: blood in stool, diarrhea, melena Musculoskeletal General: weakness, DENIES: atrophy of muscles, tenderness Integumentary Skin: itching, rash (lower extremities) Neurological General: weakness Psychiatric Psychiatric: DENIES: anxiety, depression, irritability, nervousness Endocrine DENIES: heat/cold intolerance, polyphagia Hematologic/Lymphatic DENIES: anemia, bleeding gums, easy bruising, frequent nosebleeds Allergic/Immunological DENIES: frequent infections, hives, sneezing All Other Systems All Other Systems: Reviewed (remainder of 10-point ROS Neg.) Physical Exam General General Nourishment: obese, apparent age, adult General Body Habitus: disheveled Vital Signs Vital Signs Date Time Temp Pulse Resp B/P Pulse Ox O2 Delivery O2 Flow Rate FiO2 07/23/16 17:00 74 20 139/66 92 Room Air 07/23/16 12:00 96.7 Height (Feet): 5 Height (Inches): 10.00 Telemetry Rhythm: Sinus Rhythm Eyes Brief: FOUND: EOMI, PERRL, NOT FOUND: scleral icterus Neck Brief: NOT FOUND: JVD, adenopathy, carotid bruits, thyromegaly Respiratory Brief: FOUND: rales, NOT FOUND: clear all leon, equal bilaterally Cardiovascular (brief) Cardiac Brief: FOUND: pedal edema, regular rate, regular rhythm, NOT FOUND: gallop, murmur Abdomen (brief) Abdominal Brief: FOUND: BS normo active x4, soft, NOT FOUND: distended, hepatosplenomegaly, tender Lymphatic (brief) Lymphatic Brief: NOT FOUND: adenopathy, lymphedema Musculoskeletal (brief) Musculoskeletal Brief: FOUND: extremities move equally, NOT FOUND: deformity, loss of motion, spasm, tenderness Integumentary (brief) Integumentary Brief: FOUND: rash Neurologic (brief) Neurological Brief: FOUND: cranial 2-12 intact, motor, sensory Neurologic RN Documented GCS Eye Opening: Verbal: Motor: Total: Psychiatric (brief) FOUND: alert, attentive, normal affect, oriented Laboratory Laboratory Tests Test 07/23/16 04:14 07/23/16 05:56 07/23/16 08:34 07/23/16 09:18 White Blood Count 8.3T/MM3 Red Blood Count 5.03M/MM3 Hemoglobin 15.0GM/DL Hematocrit 45.6% Mean Corpuscular Volume 90.7UM3 Mean Corpuscular Hemoglobin 29.8UUG Mean Corpuscular Hemoglobin Concent 32.9GM/DL RDW Standard Deviation 48.7FL Platelet Count 212T/MM3 Mean Platelet Volume 9.8UM3 Immature Granulocyte % (Auto) 0.2% Neutrophils (%) (Auto) 74.3% Lymphocytes (%) (Auto) 18.5% Monocytes (%) (Auto) 5.2% Eosinophils (%) (Auto) 1.2% Basophils (%) (Auto) 0.6% Absolute Immature Granulocyte (auto 0.02T/MM3 Absolute Neutrophils (auto) 6.1T/MM3 Absolute Lymphocytes (auto) 1.5T/MM3 Absolute Monocytes (auto) 0.4T/MM3 Absolute Eosinophils (auto) 0.1T/MM3 Absolute Basophils (auto) 0.1T/MM3 D-Dimer 222NG/ML Turbidity < 20 Sodium Level 143MEQ/L Potassium Level 4.3MEQ/L Chloride Level 101MEQ/L Carbon Dioxide Level 29MEQ/L Anion Gap 13MEQ/L Blood Urea Nitrogen 26.0MG/DL Creatinine 1.5MG/DL Glomerular Filtration Rate Calc 51 BUN/Creatinine Ratio 17RATIO Glucose Level 135MG/DL Calculated Osmolality 282MOSM/KG Calcium Level 9.8MG/DL Total Bilirubin 1.60MG/DL Icterus Index < 2 Aspartate Amino Transf (AST/SGOT) 53U/L Alanine Aminotransferase (ALT/SGPT) 42U/L Alkaline Phosphatase 123U/L Troponin I 0.148ng/ml 0.128ng/ml KD-Tzm-A-Type Natriuretic Peptide 3380PG/ML Total Protein 8.1G/DL Albumin 4.4G/DL Globulin 3.7G/DL Albumin/Globulin Ratio 1.2RATIO Chemistry Specimen Hemolysis < 15 < 15 Glucometer 123mg/dL Urine Collection Type Cleancatch-midstream Urine Color Yellow Urine Turbidity Clear Urine pH 6.5 Urine Specific [place] 1.015 Urine Protein Trace Urine Glucose (UA) Negative Urine Ketones Negative Urine Blood Trace-intact Urine Nitrite Negative Urine Bilirubin Negative Urine Urobilinogen 0.2EU/DL Urine Leukocyte Esterase Negative Urinalysis Comment Microscopic not ind. Thyroid Stimulating Hormone (TSH) 3.48MIU/L Test 07/23/16 12:26 07/23/16 13:23 Glucometer 190mg/dL Troponin I 0.101ng/ml Chemistry Specimen Hemolysis < 15 Radiology Chest x-ray reviewed Impression/Recommendation Problems: (1) Cardiomyopathy Status: Acute (2) Congestive heart failure Status: Acute Qualifiers: Congestive heart failure type: unspecified congestive heart failure type Congestive heart failure chronicity: unspecified congestive heart failure chronicity Qualified Codes: I50.9 - Heart failure, unspecified (3) Pulmonary edema Status: Acute Qualifiers: Chronicity: acute Qualified Codes: J81.0 - Acute pulmonary edema (4) Elevated troponin Status: Acute (5) Hypertensive emergency Status: Acute (6) Lower extremity edema (7) Type 2 diabetes mellitus Status: Chronic Qualifiers: Diabetes mellitus detention insulin use: without termite control servicer use Chronic kidney disease stage: stage 2 (mild) (8) Noncompliance with medications Status: Chronic (9) Morbid obesity Impression Type 2 diabetes with obesity, hypertension, cardiomyopathy, and noncompliance with medications Recommendation I will check his hemoglobin A1c and C-peptide level along with a urine for microalbumin to assess the intraglomerular blood pressure. We can restart his metformin following his heart catheterization and I will give him Lantus with sliding scale insulin until then. JOHNATHAN MILLER DO Jul 23, 2016 18:01
[2016-07-23] MEDS ORDERED: INSULIN LISPRO 100 UNIT/ML SQ PRN (18:15)
[2016-07-23] MEDS ORDERED: DEXTROSE 50% SYRINGE 50ml (Eq. 1 AMP) IV PRN (18:15)
[2016-07-23] MEDS ORDERED: GLUCOSE ORAL GEL 40% 37.5 G TUBE PO PRN (18:15)
--- NOTE | 2016-07-23 18:23 | NUR ---
DM Screen Diet Order: cardiac 2000 calorie consistent carb diet Based on [place] St Jeor with 1.3 activity factor and 1.0 injury factor caloric needs ~ 3288 to maintain current weight. RD recommends ~ 2400 calorie consistent carb diet which would promote ~1 1/2 lb weight loss per week. RD provided and reviewed handouts "Healthy Eating 1 2 3" and [facility] "Food choices on your plate"with pt, and step son. RD provided brochures on Diabetes education and MNT. Pt and expressed interest in both as out pt. RD provided contact information for questions RD available at ext [phone]
--- NOTE | 2016-07-23 18:30 | NUR ---
STATUS Awake this afternoon. Has had several visitors. Cardiology and special education administrator in to see patient. Up in chair for evening meal. See I/O for output.
--- NOTE | 2016-07-23 21:45 | NUR ---
New Medication Administered new medication, Entresto, to patient. Education was provided. Pt also looked up the medication on his smartphone, researching cost. Discovered it is a very expensive medication. Pt has a friend that works at the [facility] [place]. Interested to know if the two medications that make up Entresto can be split into two different prescriptions to aid in cost. States he will speak with his friend and physician tomorrow.
[2016-07-23] MEDS: INSULIN GLARGINE 100 UNIT/ML SQ SCH (21:47)
--- NOTE | 2016-07-23 22:10 | NUR ---
Status Pt has had many visitors tonight, spirits seem good. Denies any pain or discomforts. Very talkative. A&Ox3 and appropriate. Utilizes urinal at bedside. Output adequate, especially with Bumex scheduled. Consent for heart cath tomorrow is signed. Questions were answered.
[2016-07-24] VITALS (39 sets, daily range): BP systolic 99–140; BP diastolic 54–94; PULSE 57–74; RESP 15–48; TEMP 97.7–98; O2SAT 89–98
[2016-07-24] MEDS: BUMETANIDE 2.5mg INJECTION IV SCH ×4 (02:43→21:03)
[2016-07-24] MEDS: ACETAMINOPHEN 325 MG TABLET PO PRN (02:46)
[2016-07-24 03:47] LABS: BASOPHILS % (AUTO) 0.4 % (0-2); EOSINOPHILS # (AUTO) 0.1 T/MM3 (0-0.5); EOSINOPHILS % (AUTO) 1.3 % (0-4); HCT - HEMATOCRIT 46.9 % (41-53); HGB - HEMOGLOBIN 15.1 GM/DL (13.5-17.5); IMMATURE GRANULOCYTE # (AUTO) 0.01 T/MM3 (0.00-0.03); IMMATURE GRANULOCYTE % (AUTO) 0.1 % (0.0-0.5); LYMPHOCYTES # (AUTO) 1.7 T/MM3 (1-4.8); LYMPHOCYTES % (AUTO) 22.5 % (23-45); MEAN CORPUSCULAR HGB CONC(MCHC 32.2 GM/DL (31-37); MEAN CORPUSCULAR VOLUME 90.2 UM3 (80-100); MEAN PLATELET VOLUME 10.4 UM3 (9.4-12.4); MONOCYTES # (AUTO) 0.5 T/MM3 (0-0.8); MONOCYTES % (AUTO) 6.1 % (0-9.0); NEUTROPHILS #(AUTO)-ABSOLUTE 5.3 T/MM3 (1.8-7.7); NEUTROPHILS % (AUTO) 69.6 % (33-66); WBC - WHITE BLOOD COUNT 7.6 T/MM3 (4.5-11.0)
[2016-07-24 03:51] LABS: ANION GAP 10 MEQ/L (5-15); BUN/CREATININE RATIO 20 RATIO (6-26); CALCIUM 9.3 MG/DL (8.4-10.2); CHLORIDE 98 MEQ/L (98-107); CO2 - CARBON DIOXIDE 35 MEQ/L (22-30); CREATININE 1.4 MG/DL (0.8-1.5); GLOMERULAR FILTRATION RATE 56; GLUCOSE 108 MG/DL (75-110); MAGNESIUM 2.2 MG/DL (1.6-2.3); POTASSIUM 3.7 MEQ/L (3.6-5); SODIUM 143 MEQ/L (134-144)
--- NOTE | 2016-07-24 05:54 | NUR ---
Shift Summary Pt did not sleep well during the night as he works 2nd shift, therefore did not fall asleep until close to 4am. Denies pain or discomforts. Urine output good via urinal. Requested Tylenol for a headache. Administered. A&Ox3 and appropriate. VSS. BPs between low 100's and 150's systolic during shift. HR 70-80's, regular. Remains on RA. However, sleep apnea suspected as pt desaturates periodically to the upper 70's. Non-sustained.
[2016-07-24] MEDS: ASPIRIN *EC* 81mg TABLET PO SCH (08:33)
[2016-07-24] MEDS: CARVEDILOL 25 MG TABLET PO SCH ×2 (08:33→18:20)
[2016-07-24] MEDS: ENOXAPARIN 40 MG/0.4 ML INJECTION SQ SCH (08:34)
[2016-07-24] MEDS ORDERED: HEPARIN 1,000units in NS 500ml BAG IV ONE (10:13)
[2016-07-24] MEDS ORDERED: LIDOCAINE 1% (10mg/ml) 30ml SDV ONE (10:13)
--- NOTE | 2016-07-24 10:42 | NUR ---
MANISH HAMMOND IN TO VISIT PATIENT, HE IS A&O. HIS IS AT THE BEDSIDE. PATIENT PLANS TO DISCHARGE HOME, NO CONCERNS WITH CARE BUT FINANCES TO AFFORD MEDICATIONS HAVE BEEN AN ISSUE. IN NOTES HE HADN'T TAKEN MEDICATIONS FOR ABOUT 6 MONTHS DUE TO COST, WHEN I ASKED PATIENT IF HE NEEDED ASSISTANCE HE STATED THAT HE DIDN'T PURSUE ALL HIS OPTIONS FOR ASSISTANCE BEFORE, BUT WILL NOW AND AT FIRST DENIED NEED. HE THEN ASKED HIS IF THEY NEEDED ASSISTANCE AFFORDING MEDICATIONS AND SHE SAID YES. WILL LOOK INTO OPTIONS. PATIENT HAS A BLOOD GLUCOSE MONITOR AT HOME BUT HAS NOT BEEN BUYING STRIPS DUE TO COST WELL. PATIENT DOES WORK AND HAS INSURANCE. CM CONTACT INFORMATION PROVIDED. Addendum: 07/24/16 at 1046 by ANNIE SPARROW RN Amended: Links added.
[2016-07-24] MEDS: NORMAL SALINE 1,000 ML IV SCH (12:05)
[2016-07-24] MEDS ORDERED: VERAPAMIL 5mg/2ml INJECTION IV ONE (13:01)
[2016-07-24] MEDS ORDERED: NITROGLYCERIN 50mg/10ml INJECTION IV ONE (13:02)
[2016-07-24] MEDS ORDERED: MIDAZOLAM 2mg/2ml INJECTION ONE (13:02)
[2016-07-24] MEDS ORDERED: FENTANYL 100mcg/2ml INJECTION ONE (13:03)
--- NOTE | 2016-07-24 13:05 | NUR ---
Left for CV lab via bed. Voided prior.
[2016-07-24] MEDS ORDERED: NITROGLYCERIN 0.4 MG SUBLINGUAL TABLET SL PRN (13:30)
[2016-07-24] MEDS ORDERED: ONDANSETRON 4mg/2ml INJECTION IV PRN (13:30)
[2016-07-24] MEDS ORDERED: LORAZEPAM 0.5 MG TABLET PO PRN (13:30)
[2016-07-24] MEDS ORDERED: MORPHINE SULFATE 4 MG SYRINGE IV PRN ×2 (13:30)
[2016-07-24] MEDS ORDERED: METOCLOPRAMIDE 10mg/2ml INJECTION IV PRN (13:30)
[2016-07-24] MEDS ORDERED: ACETAMINOPHEN 325 MG TABLET PO PRN (13:30)
[2016-07-24] MEDS ORDERED: BISACODYL 10 MG SUPPOSITORY RECTALLY PRN (13:30)
[2016-07-24] MEDS ORDERED: PROMETHAZINE 25 MG INJECTION IV PRN (13:30)
[2016-07-24] MEDS ORDERED: MILK OF MAGNESIA 30 ML SUSP PO PRN (13:30)
[2016-07-24] MEDS ORDERED: ATROPINE 1 MG/ML VIAL IV PRN (13:30)
[2016-07-24] MEDS ORDERED: BISACODYL 5 MG E.C. TABLET PO PRN (13:30)
[2016-07-24] MEDS ORDERED: LORAZEPAM 2 MG/ML INJECTION IV PRN (13:30)
[2016-07-24] MEDS ORDERED: MAG-AL + SIM LIQUID 30 ML UDC PO PRN (13:30)
[2016-07-24] MEDS ORDERED: HYDROCODONE/APAP 5 mg/325 mg TABLET PO PRN (13:30)
--- NOTE | 2016-07-24 15:16 | NUR ---
CM STOPPED IN TO VISIT ABOUT ASSISTANCE WITH COST OF MEDICATIONS, FOUND THAT WITH INSURANCE AND EMPLOYED THAT THERE ARE NO RESOURCES. [facility] WOULD HELP IF HE WAS ESTABLISHED WITH THEIR CLINIC. HE MENTIONED THAT HE WAS GOING TO CHECK INTO [facility].
--- NOTE | 2016-07-24 17:08 | NUR ---
Life Vest Pt has had education regarding life vest
--- NOTE | 2016-07-24 17:34 | NUR ---
DIABETES EDUCATION Met with patient and regarding glucose monitoring and medications. Says that he was unable to afford [place] Contour strips. agrees to purchase a [employer] meter and strips tonight or tomorrow. Reviewed blood sugar and A1c goals according to [place] [employer] - before meals 80-130 mg/dl and 1-2 hours after meals less than 180 mg/dl. A1c goal is 7% unless otherwise stated by physician. Will return at 0730 on 07/25/16 for medication discussion. Verbalizes willingness to follow-up at [facility]. CDE may be reached at extension [phone].
[2016-07-24] MEDS: INSULIN GLARGINE 100 UNIT/ML SQ SCH (21:11)
[2016-07-25] VITALS (27 sets, daily range): BP systolic 106–151; BP diastolic 55–99; PULSE 58–72; RESP 16–33; TEMP 97.8; O2SAT 84–99
[2016-07-25] MEDS: NORMAL SALINE 1,000 ML IV SCH (00:54)
[2016-07-25] MEDS: BUMETANIDE 2.5mg INJECTION IV SCH ×2 (03:42→08:48)
--- NOTE | 2016-07-25 03:43 | NUR ---
Psychosocial Pt is extremely frustrated with lifevest as the probes continue to flip upward, causing the lifevest to alarm. States, "if this is going to be waking me up every 20 minutes, I'm not going to wear it." Pt had hospital gown and lifevest removed when RN entered room. RN assisted in reapplying lifevest and situating cords to his comfort. Pt is apologetic, however continues to voice frustration with device.
--- NOTE | 2016-07-25 07:35 | NUR ---
Shift Summary Pt slept off and on during the night. Sleep apnea noted. Placed on 2L O2/NC during sleep. HR regular between 70-80s. Lifevest remains on. VSS. Right radial insertion asymptomatic, arm board remains in place. Dressing c/d/i. Output good, utilizes urinal. A&Ox3 and appropriate. Denies pain and other discomforts.
--- NOTE | 2016-07-25 07:45 | NUR ---
DIABETES EDUCATION Discussed taking metformin BID with food. He will need a low-cost formula. Advised to work with PCP office and pharmacist. Suggest testing twice daily - fasting and 2 hours after meals (alternate times). Reviewed signs/symptoms and treatment of hypoglycemia. Out-patient brochure and business card provided. CDE may be reached at extension [phone].
[2016-07-25] MEDS ORDERED: METFORMIN 500 MG TABLET PO SCH (08:00)
--- NOTE | 2016-07-25 08:00 | NUR ---
Education: the music educator is here to talk with the patient.
[2016-07-25] MEDS: CARVEDILOL 25 MG TABLET PO SCH (08:47)
[2016-07-25] MEDS: ACETAMINOPHEN 325 MG TABLET PO PRN (08:48)
[2016-07-25] MEDS: ASPIRIN *EC* 81mg TABLET PO SCH (08:48)
[2016-07-25] MEDS: ENOXAPARIN 40 MG/0.4 ML INJECTION SQ SCH (08:49)
--- NOTE | 2016-07-25 09:30 | CVPROF ---
DATE OF PROCEDURE July 24, [address] Fady Monet The patient is a pleasant 40-year-old gentleman who was admitted with congestive heart failure and was found to have LV dysfunction and cardiomyopathy with ejection fraction less than 35% and elevation in troponin and was referred for further evaluation by cardiac catheterization and possible intervention. Informed consent was obtained after explaining the procedure and the potential risks to the patient who agreed to proceed with the procedure. PROCEDURE 1. Left heart catheterization. 2. Coronary angiography. 3. Left ventriculography. 4. Abdominal aortography by placing catheter in abdominal aorta across the renal arteries to evaluate the renal arteries in a patient with hypertensive urgency. TECHNIQUE He was prepped and draped in the usual sterile techniques. 1% lidocaine was used for local anesthesia. Using modified Seldinger technique, arterial access was obtained into the right radial artery with placement of a 6-Lithuanian arterial sheath. Conscious sedation was performed using Versed and fentanyl. 3000 units of heparin, 300 mcg of nitroglycerin, and 2.5 mg of verapamil were given through the arterial sheath. ABDOMINAL AORTOGRAPHY Abdominal aortography showed a smooth abdominal aorta with no significant lesions or aneurysms. There was a single renal artery to each kidney, both of which were patent. Superior mesenteric artery appears to be patent. LEFT VENTRICULOGRAPHY Left ventriculography in single-plane OROPEZA shallow projection showed dilated left ventricle with global hypokinesia with ejection fraction in the range of 25-30% with no mitral regurgitation or gradient across the aortic valve. LVEDP was about 27. CORONARY ANGIOGRAPHY Left main, left anterior descending and diagonals, ramus intermedius, left circumflex and marginals, and right coronary artery were all free of significant lesions with right dominant system. The patient tolerated the procedure well with no complications. IMPRESSION 1. Global hypokinesia with ejection fraction of about 25-30%. 2. No significant renal artery stenosis. 3. No significant coronary obstructive disease. 4. Elevated LV end-diastolic pressure. PLAN Medical management. JESSICAD
[2016-07-25 09:51] LABS: BASOPHILS % (AUTO) 0.4 % (0-2); EOSINOPHILS # (AUTO) 0.1 T/MM3 (0-0.5); EOSINOPHILS % (AUTO) 1.9 % (0-4); HCT - HEMATOCRIT 48.2 % (41-53); HGB - HEMOGLOBIN 15.5 GM/DL (13.5-17.5); IMMATURE GRANULOCYTE # (AUTO) 0.01 T/MM3 (0.00-0.03); IMMATURE GRANULOCYTE % (AUTO) 0.1 % (0.0-0.5); LYMPHOCYTES # (AUTO) 1.8 T/MM3 (1-4.8); LYMPHOCYTES % (AUTO) 26.3 % (23-45); MEAN CORPUSCULAR HGB 29.2 UUG (26-34); MEAN CORPUSCULAR HGB CONC(MCHC 32.2 GM/DL (31-37); MEAN CORPUSCULAR VOLUME 90.8 UM3 (80-100); MEAN PLATELET VOLUME 10.2 UM3 (9.4-12.4); MONOCYTES # (AUTO) 0.4 T/MM3 (0-0.8); MONOCYTES % (AUTO) 6.1 % (0-9.0); NEUTROPHILS #(AUTO)-ABSOLUTE 4.3 T/MM3 (1.8-7.7); NEUTROPHILS % (AUTO) 65.2 % (33-66); RED BLOOD COUNT 5.31 M/MM3 (4.50-5.90); WBC - WHITE BLOOD COUNT 6.7 T/MM3 (4.5-11.0)
[2016-07-25 10:01] LABS: ANION GAP 9 MEQ/L (5-15); BUN/CREATININE RATIO 21 RATIO (6-26); CALCIUM 9.2 MG/DL (8.4-10.2); CHLORIDE 100 MEQ/L (98-107); CO2 - CARBON DIOXIDE 32 MEQ/L (22-30); CREATININE 1.4 MG/DL (0.8-1.5); GLOMERULAR FILTRATION RATE 56; GLUCOSE 188 MG/DL (75-110); MAGNESIUM 2.1 MG/DL (1.6-2.3); POTASSIUM 3.5 MEQ/L (3.6-5); SODIUM 141 MEQ/L (134-144)
[2016-07-25] MEDS ORDERED: POTASSIUM CHLORIDE 20 MEQ TABLET PO ONE (13:00)
--- NOTE | 2016-07-25 13:44 | NUR ---
Status: the patient has c/o lightheadedness upon rising. The BP systolic is 99.
[2016-07-25] MEDS ORDERED: SPIRONOLACTONE 25 MG TABLET PO SCH (14:00)
--- NOTE | 2016-07-25 14:00 | NUR ---
Activity: The patient is up and walking about CCU with his . Denies dizziness when up.
[2016-07-25] MEDS ORDERED: SACU1TAB PO (14:09)
[2016-07-25] MEDS ORDERED: CARV25TA PO (14:09)
[2016-07-25] MEDS ORDERED: ASPI-1085 PO (14:09)
[2016-07-25] MEDS ORDERED: METF500T PO (14:09)
[2016-07-25] MEDS ORDERED: SPIR25TA PO (14:09)
[2016-07-25] MEDS ORDERED: BUME1TAB17 PO (14:09)
[2016-07-25] MEDS ORDERED: NIFE-2 PO (14:09)
--- NOTE | 2016-07-25 14:10 | NUR ---
MANISH CM IN TO VISIT WITH PT. HE IS ALERT AND ORIENTED. HIS IS PRESENT. PT DENIES DC NEEDS BUT HAS DIFFICULTY AFFORDING MEDS. HE HAS SAMPLES OF ENTRESTO. HE IS GIVE GOOD RX CARD. C[facility]G AND [facility]MIN [facility]. CM CHECKED [facility] FOR LANTUS BUT PT WILL NOT NEED IT. PT AND ARE GIVEN THIS INFORMATION. Addendum: 07/25/16 at 1412 by DUC LONG RN Amended: Links added.
--- NOTE | 2016-07-25 14:29 | NUR ---
MANISH CM IN TO VISIT WITH PT, , AND MOTHER. HE IS GIVEN COUPONS FOR NIFEDIPINE, BUMEX AND SPIRONLACTONE. PT DOES NOT FEEL HE CAN AFFORD $60 FOR MEDS. HE IS GIVEN $40 [facility]. HE REPORTS THAT HE CAN AFFORD THE REMAINING $20.
--- NOTE | 2016-07-25 15:00 | NUR ---
IV: site is dc. Education: DC orders are reviewed. Understanding is verbalized.
--- NOTE | 2016-07-25 15:03 | DSPDOC ---
[facility] EDITOR 07/25/16 1459: General Date Date DATE: 07/25/16 TIME: 14:56 Attending Physician Oscar Paulino MD Admitting Physician Oscar Paulino MD Consulting Physician Johnathan Miller DO Admitting Diagnosis hypertensive emergency, elevated troponin Discharge Diagnosis nonischemic cardiomyopathy, hypertension Procedures DATE OF PROCEDURE July 24, [address] Johnathan Miller The patient is a pleasant 40-year-old gentleman who was admitted with congestive heart failure and was found to have LV dysfunction and cardiomyopathy with ejection fraction less than 35% and elevation in troponin and was referred for further evaluation by cardiac catheterization and possible intervention. Informed consent was obtained after explaining the procedure and the potential risks to the patient who agreed to proceed with the procedure. PROCEDURE 1. Left heart catheterization. 2. Coronary angiography. 3. Left ventriculography. 4. Abdominal aortography by placing catheter in abdominal aorta across the renal arteries to evaluate the renal arteries in a patient with hypertensive urgency. TECHNIQUE He was prepped and draped in the usual sterile techniques. 1% lidocaine was used for local anesthesia. Using modified Seldinger technique, arterial access was obtained into the right radial artery with placement of a 6-Japanese arterial sheath. Conscious sedation was performed using Versed and fentanyl. 3000 units of heparin, 300 mcg of nitroglycerin, and 2.5 mg of verapamil were given through the arterial sheath. ABDOMINAL AORTOGRAPHY Abdominal aortography showed a smooth abdominal aorta with no significant lesions or aneurysms. There was a single renal artery to each kidney, both of which were patent. Superior mesenteric artery appears to be patent. LEFT VENTRICULOGRAPHY Left ventriculography in single-plane OROPEZA shallow projection showed dilated left ventricle with global hypokinesia with ejection fraction in the range of 25-30% with no mitral regurgitation or gradient across the aortic valve. LVEDP was about 27. CORONARY ANGIOGRAPHY Left main, left anterior descending and diagonals, ramus intermedius, left circumflex and marginals, and right coronary artery were all free of significant lesions with right dominant system. The patient tolerated the procedure well with no complications. IMPRESSION 1. Global hypokinesia with ejection fraction of about 25-30%. 2. No significant renal artery stenosis. 3. No significant coronary obstructive disease. 4. Elevated LV end-diastolic pressure. PLAN Medical management. Laboratory Laboratory Tests Test 07/23/16 20:12 07/24/16 03:02 07/24/16 06:28 07/24/16 10:10 Glucometer 132mg/dL 97mg/dL 113mg/dL White Blood Count 7.6T/MM3 Red Blood Count 5.20M/MM3 Hemoglobin 15.1GM/DL Hematocrit 46.9% Mean Corpuscular Volume 90.2UM3 Mean Corpuscular Hemoglobin 29.0UUG Mean Corpuscular Hemoglobin Concent 32.2GM/DL RDW Standard Deviation 49.2FL Platelet Count 216T/MM3 Mean Platelet Volume 10.4UM3 Immature Granulocyte % (Auto) 0.1% Neutrophils (%) (Auto) 69.6% Lymphocytes (%) (Auto) 22.5% Monocytes (%) (Auto) 6.1% Eosinophils (%) (Auto) 1.3% Basophils (%) (Auto) 0.4% Absolute Immature Granulocyte (auto 0.01T/MM3 Absolute Neutrophils (auto) 5.3T/MM3 Absolute Lymphocytes (auto) 1.7T/MM3 Absolute Monocytes (auto) 0.5T/MM3 Absolute Eosinophils (auto) 0.1T/MM3 Absolute Basophils (auto) 0.0T/MM3 Turbidity < 20 Sodium Level 143MEQ/L Potassium Level 3.7MEQ/L Chloride Level 98MEQ/L Carbon Dioxide Level 35MEQ/L Anion Gap 10MEQ/L Blood Urea Nitrogen 28.0MG/DL Creatinine 1.4MG/DL Glomerular Filtration Rate Calc 56 BUN/Creatinine Ratio 20RATIO Glucose Level 108MG/DL Hemoglobin A1c 6.4% Calculated Osmolality 282MOSM/KG Calcium Level 9.3MG/DL Magnesium Level 2.2MG/DL Icterus Index < 2 Troponin I 0.095ng/ml Chemistry Specimen Hemolysis 37 Test 07/24/16 14:13 07/24/16 20:23 07/25/16 06:25 07/25/16 09:28 Glucometer 103mg/dL 82mg/dL 97mg/dL White Blood Count 6.7T/MM3 Red Blood Count 5.31M/MM3 Hemoglobin 15.5GM/DL Hematocrit 48.2% Mean Corpuscular Volume 90.8UM3 Mean Corpuscular Hemoglobin 29.2UUG Mean Corpuscular Hemoglobin Concent 32.2GM/DL RDW Standard Deviation 49.5FL Platelet Count 231T/MM3 Mean Platelet Volume 10.2UM3 Immature Granulocyte % (Auto) 0.1% Neutrophils (%) (Auto) 65.2% Lymphocytes (%) (Auto) 26.3% Monocytes (%) (Auto) 6.1% Eosinophils (%) (Auto) 1.9% Basophils (%) (Auto) 0.4% Absolute Immature Granulocyte (auto 0.01T/MM3 Absolute Neutrophils (auto) 4.3T/MM3 Absolute Lymphocytes (auto) 1.8T/MM3 Absolute Monocytes (auto) 0.4T/MM3 Absolute Eosinophils (auto) 0.1T/MM3 Absolute Basophils (auto) 0.0T/MM3 Turbidity < 20 Sodium Level 141MEQ/L Potassium Level 3.5MEQ/L Chloride Level 100MEQ/L Carbon Dioxide Level 32MEQ/L Anion Gap 9MEQ/L Blood Urea Nitrogen 29.0MG/DL Creatinine 1.4MG/DL Glomerular Filtration Rate Calc 56 BUN/Creatinine Ratio 21RATIO Glucose Level 188MG/DL Calculated Osmolality 282MOSM/KG Calcium Level 9.2MG/DL Magnesium Level 2.1MG/DL Icterus Index < 2 Chemistry Specimen Hemolysis 19 Test 07/25/16 10:59 07/25/16 13:57 Glucometer 165mg/dL 119mg/dL Laboratory Tests Test 07/24/16 03:02 07/24/16 06:28 07/24/16 10:10 07/24/16 14:13 White Blood Count 7.6T/MM3 (4.5-11.0) Red Blood Count 5.20M/MM3 (4.50-5.90) Hemoglobin 15.1GM/DL (13.5-17.5) Hematocrit 46.9% (41-53) Mean Corpuscular Volume 90.2UM3 (80-100) Mean Corpuscular Hemoglobin 29.0UUG (26-34) Mean Corpuscular Hemoglobin Concent 32.2GM/DL (31-37) RDW Standard Deviation 49.2FL (36.9-50.2) Platelet Count 216T/MM3 (130-400) Mean Platelet Volume 10.4UM3 (9.4-12.4) Immature Granulocyte % (Auto) 0.1% (0.0-0.5) Neutrophils (%) (Auto) 69.6% (33-66) Lymphocytes (%) (Auto) 22.5% (23-45) Monocytes (%) (Auto) 6.1% (0-9.0) Eosinophils (%) (Auto) 1.3% (0-4) Basophils (%) (Auto) 0.4% (0-2) Absolute Immature Granulocyte (auto 0.01T/MM3 (0.00-0.03) Absolute Neutrophils (auto) 5.3T/MM3 (1.8-7.7) Absolute Lymphocytes (auto) 1.7T/MM3 (1-4.8) Absolute Monocytes (auto) 0.5T/MM3 (0-0.8) Absolute Eosinophils (auto) 0.1T/MM3 (0-0.5) Absolute Basophils (auto) 0.0T/MM3 (0-0.2) Turbidity < 20 (0-20) Sodium Level 143MEQ/L (134-144) Potassium Level 3.7MEQ/L (3.6-5) Chloride Level 98MEQ/L (98-107) Carbon Dioxide Level 35MEQ/L (22-30) Anion Gap 10MEQ/L (5-15) Blood Urea Nitrogen 28.0MG/DL (9-20) Creatinine 1.4MG/DL (0.8-1.5) Glomerular Filtration Rate Calc 56 BUN/Creatinine Ratio 20RATIO (6-26) Glucose Level 108MG/DL (75-110) Hemoglobin A1c 6.4% (6.1-7.9) Calculated Osmolality 282MOSM/KG (261-280) Calcium Level 9.3MG/DL (8.4-10.2) Magnesium Level 2.2MG/DL (1.6-2.3) Icterus Index < 2 (0-7) Troponin I 0.095ng/ml (0-0.12) Chemistry Specimen Hemolysis 37 (0-25) Glucometer 97mg/dL (75-110) 113mg/dL (75-110) 103mg/dL (75-110) Test 07/24/16 20:23 07/25/16 06:25 07/25/16 09:28 07/25/16 10:59 Glucometer 82mg/dL (75-110) 97mg/dL (75-110) 165mg/dL (75-110) White Blood Count 6.7T/MM3 (4.5-11.0) Red Blood Count 5.31M/MM3 (4.50-5.90) Hemoglobin 15.5GM/DL (13.5-17.5) Hematocrit 48.2% (41-53) Mean Corpuscular Volume 90.8UM3 (80-100) Mean Corpuscular Hemoglobin 29.2UUG (26-34) Mean Corpuscular Hemoglobin Concent 32.2GM/DL (31-37) RDW Standard Deviation 49.5FL (36.9-50.2) Platelet Count 231T/MM3 (130-400) Mean Platelet Volume 10.2UM3 (9.4-12.4) Immature Granulocyte % (Auto) 0.1% (0.0-0.5) Neutrophils (%) (Auto) 65.2% (33-66) Lymphocytes (%) (Auto) 26.3% (23-45) Monocytes (%) (Auto) 6.1% (0-9.0) Eosinophils (%) (Auto) 1.9% (0-4) Basophils (%) (Auto) 0.4% (0-2) Absolute Immature Granulocyte (auto 0.01T/MM3 (0.00-0.03) Absolute Neutrophils (auto) 4.3T/MM3 (1.8-7.7) Absolute Lymphocytes (auto) 1.8T/MM3 (1-4.8) Absolute Monocytes (auto) 0.4T/MM3 (0-0.8) Absolute Eosinophils (auto) 0.1T/MM3 (0-0.5) Absolute Basophils (auto) 0.0T/MM3 (0-0.2) Turbidity < 20 (0-20) Sodium Level 141MEQ/L (134-144) Potassium Level 3.5MEQ/L (3.6-5) Chloride Level 100MEQ/L (98-107) Carbon Dioxide Level 32MEQ/L (22-30) Anion Gap 9MEQ/L (5-15) Blood Urea Nitrogen 29.0MG/DL (9-20) Creatinine 1.4MG/DL (0.8-1.5) Glomerular Filtration Rate Calc 56 BUN/Creatinine Ratio 21RATIO (6-26) Glucose Level 188MG/DL (75-110) Calculated Osmolality 282MOSM/KG (261-280) Calcium Level 9.2MG/DL (8.4-10.2) Magnesium Level 2.1MG/DL (1.6-2.3) Icterus Index < 2 (0-7) Chemistry Specimen Hemolysis 19 (0-25) Test 07/25/16 13:57 Glucometer 119mg/dL (75-110) Radiology DATE OF EXAM: 07/23/16 ORDERING DOCTOR: JOHNATHAN STREET MD TYPE OF EXAM: CHEST, PA & LATERAL REASON FOR EXAM: dyspnea Indication: ITS.REASON: dyspnea Procedure: CHEST, PA LATERAL: Encounter: Initial Comparison: 03/17/2012, 02/12/2012 Technique: PA and lateral radiographs of the chest were obtained. Findings: Lungs and airways: Normal lung volumes. No focal airspace consolidation. Mildly prominent interstitial markings. Pleura: No pleural effusion or pneumothorax. Heart and mediastinum: Cardiomegaly. The great vessels are within normal limits. Osseous structures and soft tissues: No acute osseous abnormality is seen. Impression: Cardiomegaly with mildly prominent interstitial markings which could reflect early congestive change/edema. History of Present Illness Kvng is a 40 year old who presented this morning after getting off work at 2 AM , with complaints of worsening dyspnea. When he tried to go to sleep, he awakened suddenly with a severe feeling of not being able to breathe. This is been ongoing for at least one to 2 weeks, and he has not contacted his primary physician about this yet. He admits that he is supposed to be on blood pressure medication as well as diabetes medication, but due to financial constraints he has not taken the medication in quite some time. 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 He is also significantly overweight. He is seen today in his room in [facility]U. He is alert and pleasant. States that he has not been able to afford his medications for about 6 months or more. He denies chest pain, breathing difficulty or dizziness. Objective Vital Signs Vital signs Vital Signs 07/25/16 07/25/16 07/25/16 07/25/16 03:00 03:31 04:01 04:11 Pulse 60 63 62 60 Resp 16 22 18 B/P 116/81 127/78 118/67 Pulse Ox 99 95 96 O2 Delivery Nasal Cannula Room Air Room Air O2 Flow Rate 2.00 07/25/16 07/25/16 07/25/16 07/25/16 05:00 05:30 06:00 06:30 Pulse 58 60 61 62 Resp 17 18 23 33 B/P 125/72 127/90 116/74 127/73 Pulse Ox 99 84 92 90 O2 Delivery Room Air Room Air Room Air Room Air 07/25/16 07/25/16 07/25/16 07/25/16 07:00 07:30 07:42 08:00 Temp 97.8 Pulse 66 67 63 66 Resp 17 28 22 20 B/P 129/77 119/72 Pulse Ox 88 94 96 O2 Delivery Room Air Room Air Room Air 07/25/16 07/25/16 07/25/16 07/25/16 08:01 08:30 09:00 09:31 Pulse 66 71 71 72 Resp 23 24 22 22 B/P 140/91 143/90 151/99 126/66 Pulse Ox 96 96 95 94 O2 Delivery Room Air Room Air Room Air Room Air 07/25/16 07/25/16 07/25/16 07/25/16 10:00 10:30 11:00 11:54 Temp 97.8 Pulse 67 64 64 61 Resp 17 18 20 21 B/P 123/64 108/60 106/55 Pulse Ox 93 93 94 O2 Delivery Room Air Room Air Room Air Telemetry Rhythm: Sinus Rhythm Height (Feet): 5 Height (Inches): 10.00 Weight (Kilograms): 150.100 General Alert, Obese, Orientated x 3, Cooperative ENMT (Brief) mucosa moist Neck (Brief) NOT FOUND: JVD, carotid bruits Respiratory (Brief) clear all leon, equal bilaterally, NOT FOUND: rales Cardiovascular (Brief) pedal edema, regular rate, regular rhythm, NOT FOUND: gallop, murmur Abdomen (Brief) BS normo active x4, soft, NOT FOUND: tender Integumentary (Brief) dry, lesions (LEs), pink, warm Psychiatric (Brief) alert, oriented Laboratory Laboratory Laboratory Tests 07/25/16 09:28 Laboratory Tests 07/25/16 09:28 EKG SR, NSST changes Medications Current Medications Labetalol HCl (Trandate) 20 mg O ONCE IV Last administered on 07/23/16t 04:24 ; Start 07/23/16 at 04:15; Stop 07/23/16 at 04:17; Status DC Lisinopril (Prinivil) 40 mg O ONCE PO Last administered on 07/23/16 04:58; Start 07/23/16 at 05:00; Stop 07/23/16 at 05:02; Status DC Furosemide (Lasix) 40 mg O ONCE IV Last administered on 07/23/16 04:51; Start 07/23/16 at 05:00; Stop 07/23/16 at 05:02; Status DC Nitroglycerin (Nitro-Bid) 1 inch O ONCE TOP Last administered on 07/23/16 05: 10; Start 07/23/16 at 05:15; Stop 07/23/16 at 05:16; Status DC Enoxaparin Sodium (Lovenox) 40 mg DAILY SQ Last administered on 07/25/16 08:49 ; Start 07/23/16 at 09:00 Labetalol HCl (Normodyne) 200 mg BID PO Last administered on 07/23/16 09:06; Start 07/23/16 at 09:00; Stop 07/23/16 at 15:51; Status DC Hydralazine HCl (Apresoline) 10 mg Q6HR PRN IV ; Start 07/23/16 at 08:15 Nifedipine (PROCARDIA XL 30 mg) 30 mg DAILY PO Last administered on 07/25/16 08:46; Start 07/23/16 at 09:00 Bumetanide (Bumex Inj. 2.5 Mg/10 ml) 2 mg Q6HR IV Last administered on 08:48; Start 07/23/16 at 09:00; Stop 07/25/16 at 13:56; Status DC Aspirin (Ecotrin) 81 mg DAILY PO Last administered on 07/25/16 08:48; Start at 09:45 Carvedilol (Coreg) 25 mg BIDWM PO Last administered on 07/25/16 08:47; Start 07/23/16 at 17:30 Sacubitril/ Valsartan (ENTRESTO 24mg/ 26mg) 1 tab BID PO Last administered on 08:48; Start 07/23/16 at 21:00 Insulin Glargine (Lantus) 10 unit HS SQ Last administered on 07/23/16 21:47; Start 07/23/16 at 22:00 Glucose (Glutose 15) 37.5 g PRN PRN PO HYPOGLYCEMIA; Start 07/23/16 at 18:15 Dextrose (D50w) 25 ml PRN PRN IV HYPOGLYCEMIA; Start 07/23/16 at 18:15 Insulin Human Lispro (Humalog) SS PRN SQ Last administered on 07/25/16 11:11 ; Start 07/23/16 at 18:15 Heparin Sodium/ Sodium Chloride (HEPARIN 1,000units in NS 500ml) 1,000 unit STK- MED ONCE IV ; Start 07/24/16 at 10:13; Stop 07/24/16 at 10:14; Status DC Lidocaine HCl (Xylocaine 1%) 300 mg STK-MED ONCE .ROUTE ; Start 07/24/16 at 10: 13; Stop 07/24/16 at 10:14; Status DC Iodixanol 1 bottle 1 bottle STK-MED ONCE IV ; Start 07/24/16 at 10:13; Stop at 10:14; Status DC Sodium Chloride (Normal Saline IV) 1,000 ml @ 75 mls/hr [id number] IV Last administered on 07/25/16 00:54; Start 07/24/16 at 12:00 Verapamil HCl (Verapamil) 5 mg STK-MED ONCE IV ; Start 07/24/16 at 13:01; Stop 07/24/16 at 13:02; Status DC Nitroglycerin (Nitroglycerin) 50 mg STK-MED ONCE IV ; Start 07/24/16 at 13:02; Stop 07/24/16 at 13:03; Status DC Heparin Sodium (Porcine) (Heparin Bolus) 10,000 unit STK-MED ONCE IV ; Start at 13:02; Stop 07/24/16 at 13:03; Status DC Midazolam HCl (Versed) 2 mg STK-MED ONCE .ROUTE ; Start 07/24/16 at 13:02; Stop 07/24/16 at 13:03; Status DC Fentanyl (Fentanyl) 100 mcg STK-MED ONCE .ROUTE ; Start 07/24/16 at 13:03; Stop 07/24/16 at 13:04; Status DC Atropine Sulfate (ATROPINE 1mg INJ) 0.5 mg Q5M PRN IV pulse < 40 bmp AND symptomatic; Start 07/24/16 at 13:30 Acetaminophen (Tylenol Regular Strength) 325-650 mg Q5H PRN PO PAIN; Start at 13:30 Morphine Sulfate (Morphine) 2-4 mg Q5MIN PRN IV ANGINA; Start 07/24/16 at 13:30 Acetaminophen/ Hydrocodone Bitart (Kelley 5/325) 1-2 tabs Q5H PRN PO PAIN; Start 07/24/16 at 13:30 Promethazine HCl (Phenergan) 12.5-25 mg Q6H PRN IV NAUSEA &/OR VOMITING; Start 07/24/16 at 13:30 Nitroglycerin (Nitrostat) 0.4 mg Q5MIN PRN SL ANGINA; Start 07/24/16 at 13:30 Magnesium Hydroxide (Mom) 30 ml DAILY PRN PO CONSTIPATION; Start 07/24/16 at 13 :30 Bisacodyl (Dulcolax) 5-10 mg DAILY PRN PO CONSTIPATION; Start 07/24/16 at 13:30 Al Hydroxide/Mg Hydroxide (Maalox) 30 ml Q3H PRN PO INDIGESTION; Start at 13:30 Lorazepam (Ativan) 0.5-1 mg Q4H PRN IV ANXIETY; Start 07/24/16 at 13:30 Metoclopramide HCl (REGLAN Inj) 5-10 mg Q6H PRN IV NAUSEA &/OR VOMITING; Start 07/24/16 at 13:30 Ondansetron HCl (Zofran) 4 mg Q6H PRN IV NAUSEA &/OR VOMITING; Start 07/24/16 at 13:30 Metformin HCl (Glucophage) 500 mg BIDWM PO Last administered on 07/25/16 08:47 ; Start 07/25/16 at 08:00 Potassium Chloride (Kdur) 40 meq O ONCE PO Last administered on 07/25/16t 13: 40; Start 07/25/16 at 13:00; Stop 07/25/16 at 13:03; Status DC Bumetanide (BUMEX 1 mg TAB) 2 mg BID. PO ; Start 07/25/16 at 17:00 Spironolactone (Aldactone) 25 mg DAILY PO ; Start 07/25/16 at 14:00 Hospital Course 07/23/16 HTN: Hydralazine 10mg IV X1 and prn SBP >180. Labetalol 200mg BID changed to Coreg 25mg BID due to EF of 25% on echo. CHF: Bumex 2mg IV Q6H for diuresis. Entresto 24/26mg BID elevated troponin: Likely type II NC, heart cath at 1300 tomorrow. 07/24/16 heart cath, see report 07/25/16 Discharge to home Problems: (1) Hypertensive emergency Status: Acute (2) Congestive heart failure Status: Acute (3) Pulmonary edema Status: Acute (4) Elevated troponin Status: Acute Code Status Full Code Home Meds Active Scripts Metformin HCl (Glucophage) 500 Mg Tablet, 500 MG PO BIDWM for 30 Days, #60 TAB 11 Refills Prov:TRENT SPENCER JUNAID 07/25/16 Bumetanide (Bumetanide) 1 Mg Tablet, 2 MG PO BID. for 30 Days, #120 TAB 11 Refills Prov:TRENT SPENCER JUNAID 07/25/16 Aspirin *EC* (Aspirin EC) 81 Mg Tablet.dr, 81 MG PO DAILY for 30 Days, #30 TAB 11 Refills Prov:TRENT SPENCER JUNAID 07/25/16 Spironolactone (Aldactone) 25 Mg Tablet, 25 MG PO DAILY for 30 Days, #30 TAB 11 Refills Prov:TRENT SPENCER JUNAID 07/25/16 Sacubitril/Valsartan (Entresto 24 mg-26 mg Tablet) 1 Each Tablet, 1 TAB PO BID for 30 Days, #60 TAB 11 Refills Prov:TRENT SPENCER JUNAID 07/25/16 Nifedipine (Nifedipine ER) 30 Mg Tab.er.24, 30 MG PO DAILY for 30 Days, #30 TAB 11 Refills Prov:TRENT SPENCER JUNAID 07/25/16 Carvedilol (Coreg) 25 Mg Tablet, 25 MG PO BIDWM for 30 Days, #60 TAB 11 Refills Prov:TRENT SPENCER JUNAID 07/25/16 Discharge Disposition Discharge to home in the care of himself in good and stable condition with RXs for Coreg, Entresto, Bumex, Aspirin, Spironolactone, Nifedipine and Metformin. Copies To 1: JOHNATHAN MILLER HOSSEIN MD 07/31/16 1015: Hospital Course Home Meds Active Scripts Metformin HCl (Glucophage) 500 Mg Tablet, 500 MG PO BIDWM for 30 Days, #60 TAB 11 Refills Prov:TRENT SPENCER JUNAID 07/25/16 Bumetanide (Bumetanide) 1 Mg Tablet, 2 MG PO BID. for 30 Days, #120 TAB 11 Refills Prov:TRENT SPENCER JUNAID 07/25/16 Aspirin *EC* (Aspirin EC) 81 Mg Tablet.dr, 81 MG PO DAILY for 30 Days, #30 TAB 11 Refills Prov:TRENT SPENCER JUNAID 07/25/16 Spironolactone (Aldactone) 25 Mg Tablet, 25 MG PO DAILY for 30 Days, #30 TAB 11 Refills Prov:TRENT SPENCER JUNAID 07/25/16 Sacubitril/Valsartan (Entresto 24 mg-26 mg Tablet) 1 Each Tablet, 1 TAB PO BID for 30 Days, #60 TAB 11 Refills Prov:TRENT SPENCER JUNAID 07/25/16 Nifedipine (Nifedipine ER) 30 Mg Tab.er.24, 30 MG PO DAILY for 30 Days, #30 TAB 11 Refills Prov:TRENT SPENCER JUNAID 07/25/16 Carvedilol (Coreg) 25 Mg Tablet, 25 MG PO BIDWM for 30 Days, #60 TAB 11 Refills Prov:TRENT SPENCER JUNAID 07/25/16 Discharge Disposition After examining the patient I agree with the above assessment. I am involved in the formulation of the patient's plan of care. Copies To 1: JOHNATHAN MILLER AMY M APRN Jul 25, 2016 14:59 OSCAR PAULINO MD Jul 31, 2016 10:15
--- NOTE | 2016-07-25 15:30 | NUR ---
DC: the patient is dc to home. DC packet is taken home. The patient is ambulatory to the car. Addendum: 07/25/16 at 1635 by PAZ MINOR RN The patient was dc to home wearing the life vest.
[2016-07-25] MEDS ORDERED: BUMETANIDE 1 MG TABLET PO SCH (17:00)
--- NOTE | 2016-07-29 13:11 | NUR ---
CM THIS CM PLACED DISCHARGE FOLLOW UP CALL TO PATIENT. 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 PATIENT DID CALL HIS BROTHER AND BROTHER TOOK HIM HOME. PATIENT REPORTS HE HAS ALREADY CALLED DR. PAULINO AND IS WAITING FOR A CALL BACK. PATIENT SAID HE WAS NOT DIZZY ON THE WAY HOME BUT DID GET DIZZY AGAIN WHEN HE GOT OUT OF THE CAR. TALKED WITH PATIENT ABOUT ORTHOSTATIC HYPOTENSION AND ENCOURAGED HIM TO CHANGE POSITIONS MORE SLOWLY, THAT THIS COULD BE RELATED TO ONE OF HIS MEDICATIONS AND TO REPORT ALL OF THIS TO DR PAULINO'S NURSE WHEN SHE CALLS BACK. TRENT SPENCER APRN NOTIFIED OF PATIENTS CONCERNS SHE WILL TALK WITH HER NURSE ABOUT PATIENT.
== END 2016-07-25 15:30 | disposition home or self-care (01) | DRG 287 ==
LOC: ED 03:58 → EDHOLD 05:09 → CCU 05:32 → OBSVTOIN 07-24 14:48
PROVIDERS: ADMIT Internal Medicine Cardiovascular Disease; ATTEND Internal Medicine Cardiovascular Disease
PROC: 4A023N7 Measurement of Cardiac Sampling and Pressure, Left Heart, Percutaneous Approach (ICD-10-PCS; principal; 2016-07-24)
PROC: B211YZZ Fluoroscopy of Multiple Coronary Arteries using Other Contrast (ICD-10-PCS; 2016-07-24)
PROC: B215YZZ Fluoroscopy of Left Heart using Other Contrast (ICD-10-PCS; 2016-07-24)
PROC: B310YZZ Fluoroscopy of Thoracic Aorta using Other Contrast (ICD-10-PCS; 2016-07-24)
PROC: B410YZZ Fluoroscopy of Abdominal Aorta using Other Contrast (ICD-10-PCS; 2016-07-24)
PROC: B418YZZ Fluoroscopy of Bilateral Renal Arteries using Other Contrast (ICD-10-PCS; 2016-07-24)
DX: I42.9 Cardiomyopathy, unspecified (principal); I50.20 Unspecified systolic (congestive) heart failure; Z68.42 Body mass index [BMI] 45.0-49.9, adult; I13.0 Hypertensive heart and chronic kidney disease with heart failure and stage 1 through stage 4 chronic kidney disease, or unspecified chronic kidney disease; I16.1 Hypertensive emergency; E11.22 Type 2 diabetes mellitus with diabetic chronic kidney disease; E11.65 Type 2 diabetes mellitus with hyperglycemia; N18.2 Chronic kidney disease, stage 2 (mild); T50.996A Underdosing of other drugs, medicaments and biological substances, initial encounter; R60.0 Localized edema; E66.9 Obesity, unspecified; Z91.120 Patient's intentional underdosing of medication regimen due to financial hardship; Z79.82 Long term (current) use of aspirin; Z86.711 Personal history of pulmonary embolism
CPT/HCPCS: 36415; 80048; 80053; 81003; 82043; 82948; 83036; 83735; 83880; 84443; 84484; 85025; 85379; 93005; 93306; 93458; 96372; 96374; 96375; 99218